=== PATIENT | male | born 1950 | race Caucasian/White ===

== ENCOUNTER 2020-01-18 19:56 | Emergency (ER) | payer MEDICARE, MEDICAID ==
[~2020-01-18] VITALS: Ht 177.8 cm; Wt 60.0 kg
[2020-01-18] MEDS ORDERED: LIDOCAINE 1%/EPI 1:100,000 10 ML VIAL IJ ONE (20:30)
[2020-01-18] MEDS ORDERED: BACITRACIN ZINC OINT UDPKT TOP ONE (20:30)
[2020-01-18 22:56] VITALS: BP 159/73
== END 2020-01-18 22:59 | disposition home or self-care (01) ==
LOC: ER 19:56
DX: T82.838A Hemorrhage due to vascular prosthetic devices, implants and grafts, initial encounter (principal); Y84.1 Kidney dialysis as the cause of abnormal reaction of the patient, or of later complication, without mention of misadventure at the time of the procedure; Y92.9 Unspecified place or not applicable; F32.9 Major depressive disorder, single episode, unspecified; I12.0 Hypertensive chronic kidney disease with stage 5 chronic kidney disease or end stage renal disease; E11.22 Type 2 diabetes mellitus with diabetic chronic kidney disease; N18.6 End stage renal disease; Z99.2 Dependence on renal dialysis; Z79.4 Long term (current) use of insulin; E03.9 Hypothyroidism, unspecified; F20.9 Schizophrenia, unspecified; G62.9 Polyneuropathy, unspecified
CPT/HCPCS: 99283; J3490

== ENCOUNTER 2020-02-06 12:25 | Inpatient (IN) | payer MEDICARE, MEDICAID ==
[~2020-02-06] VITALS: Ht 172.7 cm; Wt 59.9 kg
[2020-02-06] VITALS (16 sets, daily range): BP systolic 118–167; BP diastolic 51–91
[2020-02-06] MEDS ORDERED: VANCOMYCIN 1 G PREMIX 200 ML IV SCH (12:45)
[2020-02-06] MEDS ORDERED: PIPERACILLIN/TAZOBACTAM 3.375GM/50ML PREMIX IV ONE (12:45)
[2020-02-06 13:26] LABS: BASOPHILS % 0.9 % (0.0-2.0); EOSINOPHILS % 3.4 % (0.0-5.0); HEMATOCRIT. 28.3 % (42.0-52.0); HEMOGLOBIN. 8.9 g/dL (14.0-18.0); LYMPHOCYTES % 9.7 % (20.0-50.0); MEAN CORPUSCULAR HEMOGLOBIN 28.8 pg (28.0-32.0); MEAN CORPUSCULAR VOLUME 91.5 fL (80.0-94.0); MONOCYTES % 6.5 % (2.0-8.0); NEUTROPHILS % 79.5 % (40.0-76.0); PLATELET 287 x1000/uL (130-400); RED CELL DISTRIBUTION WIDTH 16.8 % (11.6-14.6)
[2020-02-06 13:31] LABS: BG BASE EXCESS 3.4 mmol/L (-2.0-2.0); BG CARBOXYHEMOGLOBIN 0.6 % (0.5-1.5); BG DEOXYHEMOGLOBIN 4.8 % (0.0-5.0); BG FRACTION INSPIRED OXYGEN 50; BG HCO3 ACT 30.2 mmol/L (22.0-26.0); BG METHEMOGLOBIN 0.2 % (0.0-1.5); BG OXYGEN SATURATION 95.2 % (92.0-98.5); BG OXYHEMOGLOBIN 94.4 % (94.0-97.0); BG PCO2 58.9 mmHg (35.0-45.0); BG PH 7.328 (7.350-7.450); BG PO2 80.9 mmHg (75.0-100.0); BG SAMPLE SITE RIGHT RADIAL; BG TOTAL HEMOGLOBIN 9.5 g/dL (12.0-18.0); BG VENT MODE MASK - BIPAP
[2020-02-06 13:33] LABS: CHLORIDE 100 mEq/L (98-107)
[2020-02-06 13:38] LABS: ETHANOL BLOOD < 10 mg/dL
[2020-02-06 13:45] LABS: D-DIMER 7.52 mg/L FEU (<0.50); INR 1.1; PROTHROMBIN TIME 11.7 sec (9.6-11.0)
[2020-02-06 13:49] LABS: CREATINE KINASE 34 IU/L (39-308)
[2020-02-06] MEDS ORDERED: ALBUTEROL 6.7GM HFA INHALER ORI PRN (15:15)
[2020-02-06 15:55] LABS: CLARITY URINE CLEAR (CLEAR); COLOR URINE YELLOW (YELLOW); KETONES URINE NEGATIVE (NEGATIVE); LEUKOCYTE ESTERASE URINE NEGATIVE (NEGATIVE); NITRITE URINE NEGATIVE (NEGATIVE); OCCULT BLOOD URINE NEGATIVE (NEGATIVE); PROTEIN URINE 3+ (NEGATIVE); SPECIFIC GRAVITY URINE 1.016 (1.005-1.030); UROBILINOGEN URINE 0.2 E.U./dL (0.2-1.0)
[2020-02-06] MEDS ORDERED: CEFTRIAXONE 1 G PREMIX 50 ML IV SCH (16:00)
[2020-02-06] MEDS ORDERED: AZITHROMYCIN 500 MG in DEXT 5% WATER 250 ML IV SCH ×2 (16:00→18:00)
[2020-02-06] MEDS ORDERED: CEFTRIAXONE 1,000 MG in DEXTROSE 5% WATER 50 ML IV SCH (18:00)
[2020-02-06] MEDS: ENOXAPARIN 30MG/0.3ML SYR SUBCUT SCH (19:01)
[2020-02-06] MEDS: CEFTRIAXONE 1,000 MG in DEXTROSE 5% WATER 50 ML IV SCH (20:30)
[2020-02-06] MEDS: EPOETIN ALFA 10000UNITS/ML VIAL SUBCUT SCH (23:16)
[2020-02-07] VITALS (23 sets, daily range): BP systolic 108–170; BP diastolic 44–116
[2020-02-07] MEDS ORDERED: GUAIFENESIN 200MG/10ML SUGAR FREE UDC PO PRN (01:15)
[2020-02-07] MEDS ORDERED: DIPHENHYDRAMINE 50MG/ML VIAL IV PRN (01:15)
[2020-02-07] MEDS ORDERED: ZOLPIDEM TARTRATE 5MG TABLET PO PRN (01:15)
[2020-02-07] MEDS ORDERED: CLONIDINE 0.1MG TABLET PO PRN (01:15)
[2020-02-07] MEDS ORDERED: ONDANSETRON HCL 4MG/2ML INJ IV PRN (01:15)
[2020-02-07] MEDS ORDERED: HYDROCODONE/ACETAMINOPHEN 5/325MG TABLET PO PRN (01:15)
[2020-02-07] MEDS ORDERED: ACETAMINOPHEN 325MG TABLET PO PRN ×2 (01:15)
[2020-02-07] MEDS ORDERED: MAGNESIUM/ALUMINUM HYDROXIDE/SIMETHICONE 30ML UDC PO PRN (01:15)
[2020-02-07] MEDS ORDERED: LORAZEPAM 2MG/ML CPJ IV PRN (01:15)
[2020-02-07] MEDS: LEVOTHYROXINE SODIUM 100MCG TABLET PO SCH (08:55)
[2020-02-07] MEDS: SODIUM CHLORIDE 0.9% INJ 3ML FLUSH IVF SCH ×2 (08:56→14:55)
[2020-02-07] MEDS: METOPROLOL TARTRATE 50MG TABLET PO SCH ×2 (08:57→21:10)
[2020-02-07] MEDS: CITALOPRAM HYDROBROMIDE 10MG TABLET PO SCH (08:57)
[2020-02-07] MEDS: AMLODIPINE 10MG TABLET PO SCH (08:58)
[2020-02-07] MEDS: GABAPENTIN 300MG CAPSULE PO SCH (08:58)
[2020-02-07] MEDS: FOLIC ACID/VITAMIN B COMP W-C TABLET PO SCH (08:58)
[2020-02-07] MEDS: OLANZAPINE 2.5MG TABLET PO SCH (08:59)
[2020-02-07] MEDS: ALLOPURINOL 100 MG TABLET PO SCH (08:59)
[2020-02-07 10:53] LABS: HEMATOCRIT. 26.7 % (42.0-52.0); HEMOGLOBIN. 8.5 g/dL (14.0-18.0); MEAN CORPUSCULAR HEMOGLOBIN 29.3 pg (28.0-32.0); MEAN CORPUSCULAR VOLUME 91.9 fL (80.0-94.0); MEAN PLATELET VOLUME 8.5 fl (7.4-10.4); PLATELET 252 x1000/uL (130-400); RED CELL DISTRIBUTION WIDTH 16.4 % (11.6-14.6)
[2020-02-07 11:21] LABS: PLATELET ESTIMATE NORMAL
[2020-02-07 11:58] LABS: BG BASE EXCESS 2.1 mmol/L (-2.0-2.0); BG CARBOXYHEMOGLOBIN 0.6 % (0.5-1.5); BG DEOXYHEMOGLOBIN 2.8 % (0.0-5.0); BG FRACTION INSPIRED OXYGEN 32; BG HCO3 ACT 28.9 mmol/L (22.0-26.0); BG METHEMOGLOBIN 0.4 % (0.0-1.5); BG OXYGEN SATURATION 97.2 % (92.0-98.5); BG OXYHEMOGLOBIN 96.2 % (94.0-97.0); BG PH 7.316 (7.350-7.450); BG PO2 102.2 mmHg (75.0-100.0); BG SAMPLE SITE RIGHT BRACHIAL; BG TOTAL HEMOGLOBIN 8.9 g/dL (12.0-18.0); BG VENT MODE NASAL CANNULA
[2020-02-07] MEDS: ENOXAPARIN 30MG/0.3ML SYR SUBCUT SCH (17:43)
[2020-02-07] MEDS: CEFTRIAXONE 1,000 MG in DEXTROSE 5% WATER 50 ML IV SCH (21:11)
[2020-02-08] VITALS: BP 118/77
[2020-02-08] MEDS: SODIUM CHLORIDE 0.9% INJ 3ML FLUSH IVF SCH ×4 (01:44→21:17)
[2020-02-08] MEDS: AZITHROMYCIN 500 MG in DEXT 5% WATER 250 ML IV SCH ×2 (01:46→01:47)
[2020-02-08 04:00] VITALS: BP 145/62
[2020-02-08 05:56] LABS: CHLORIDE 102 mEq/L (98-107)
[2020-02-08 06:16] LABS: EOSINOPHILS % 11.2 % (0.0-5.0); HEMATOCRIT. 26.9 % (42.0-52.0); HEMOGLOBIN. 8.6 g/dL (14.0-18.0); LYMPHOCYTES % 9.6 % (20.0-50.0); MEAN CORPUSCULAR VOLUME 91.2 fL (80.0-94.0); MONOCYTES % 8.8 % (2.0-8.0); NEUTROPHILS % 69.4 % (40.0-76.0); PLATELET 289 x1000/uL (130-400); RED BLOOD CELL COUNT 2.95 mill/uL (4.7-6.1); RED CELL DISTRIBUTION WIDTH 16.7 % (11.6-14.6)
[2020-02-08] MEDS: LEVOTHYROXINE SODIUM 100MCG TABLET PO SCH (06:35)
[2020-02-08 08:00] VITALS: BP 122/71
[2020-02-08] MEDS ORDERED: SODIUM BICARBONATE 4% (2.4MEQ) 5ML VIAL IV ONE (08:20)
[2020-02-08 08:46] LABS: BG BASE EXCESS 4.1 mmol/L (-2.0-2.0); BG CARBOXYHEMOGLOBIN 0.9 % (0.5-1.5); BG FRACTION INSPIRED OXYGEN 32; BG HCO3 ACT 30.1 mmol/L (22.0-26.0); BG METHEMOGLOBIN 0.3 % (0.0-1.5); BG OXYGEN SATURATION 92.9 % (92.0-98.5); BG OXYHEMOGLOBIN 91.8 % (94.0-97.0); BG PCO2 53.1 mmHg (35.0-45.0); BG PH 7.371 (7.350-7.450); BG PO2 68.6 mmHg (75.0-100.0); BG SAMPLE SITE RIGHT BRACHIAL; BG TOTAL HEMOGLOBIN 9.3 g/dL (12.0-18.0); BG VENT MODE NASAL CANNULA
[2020-02-08] MEDS: METOPROLOL TARTRATE 50MG TABLET PO SCH ×2 (09:00→21:18)
[2020-02-08] MEDS: AMLODIPINE 10MG TABLET PO SCH (09:00)
[2020-02-08] MEDS: ALLOPURINOL 100 MG TABLET PO SCH (10:38)
[2020-02-08] MEDS: OLANZAPINE 2.5MG TABLET PO SCH (10:38)
[2020-02-08] MEDS: CITALOPRAM HYDROBROMIDE 10MG TABLET PO SCH (10:38)
[2020-02-08] MEDS: FOLIC ACID/VITAMIN B COMP W-C TABLET PO SCH (10:38)
[2020-02-08] MEDS: GABAPENTIN 300MG CAPSULE PO SCH (10:38)
[2020-02-08 12:00] VITALS: BP 101/73
[2020-02-08 16:00] VITALS: BP 164/74
[2020-02-08 20:00] VITALS: BP 118/70
[2020-02-08] MEDS: IPRATROPIUM/ALBUTEROL 0.5-3(2.5)MG/3ML NEB HHN SCH (20:23)
[2020-02-08] MEDS: CEFTRIAXONE 1,000 MG in DEXTROSE 5% WATER 50 ML IV SCH (20:38)
[2020-02-08] MEDS: EPOETIN ALFA 10000UNITS/ML VIAL SUBCUT SCH (21:17)
[2020-02-08] MEDS: AZITHROMYCIN 500 MG TABLET PO SCH (21:18)
[2020-02-09] VITALS: BP 100/63
[2020-02-09] MEDS: IPRATROPIUM/ALBUTEROL 0.5-3(2.5)MG/3ML NEB HHN SCH ×4 (01:49→21:11)
[2020-02-09 04:00] VITALS: BP 104/68
[2020-02-09] MEDS: LEVOTHYROXINE SODIUM 100MCG TABLET PO SCH (07:00)
[2020-02-09] MEDS: SODIUM CHLORIDE 0.9% INJ 3ML FLUSH IVF SCH ×3 (07:00→21:02)
[2020-02-09 08:00] VITALS: BP 150/77
[2020-02-09] MEDS: CITALOPRAM HYDROBROMIDE 10MG TABLET PO SCH (09:37)
[2020-02-09] MEDS: OLANZAPINE 2.5MG TABLET PO SCH (09:37)
[2020-02-09] MEDS: GABAPENTIN 300MG CAPSULE PO SCH (09:37)
[2020-02-09] MEDS: FOLIC ACID/VITAMIN B COMP W-C TABLET PO SCH (09:37)
[2020-02-09] MEDS: AMLODIPINE 10MG TABLET PO SCH (09:37)
[2020-02-09] MEDS: METOPROLOL TARTRATE 50MG TABLET PO SCH ×2 (09:38→21:02)
[2020-02-09] MEDS: ALLOPURINOL 100 MG TABLET PO SCH (09:38)
[2020-02-09 12:00] VITALS: BP 99/40
[2020-02-09 16:00] VITALS: BP 134/55
[2020-02-09 20:00] VITALS: BP 138/61
[2020-02-09] MEDS: CEFTRIAXONE 1,000 MG in DEXTROSE 5% WATER 50 ML IV SCH (20:35)
[2020-02-09] MEDS: AZITHROMYCIN 500 MG TABLET PO SCH (21:02)
[2020-02-10] VITALS: BP 140/59
[2020-02-10] MEDS: IPRATROPIUM/ALBUTEROL 0.5-3(2.5)MG/3ML NEB HHN SCH ×3 (02:40→16:35)
[2020-02-10 04:00] VITALS: BP 135/64
[2020-02-10] MEDS: SODIUM CHLORIDE 0.9% INJ 3ML FLUSH IVF SCH ×2 (06:13→13:15)
[2020-02-10] MEDS: LEVOTHYROXINE SODIUM 100MCG TABLET PO SCH (06:20)
[2020-02-10 08:00] VITALS: BP 141/56
[2020-02-10] MEDS: CITALOPRAM HYDROBROMIDE 10MG TABLET PO SCH (09:54)
[2020-02-10] MEDS: GABAPENTIN 300MG CAPSULE PO SCH (09:54)
[2020-02-10] MEDS: OLANZAPINE 2.5MG TABLET PO SCH (09:54)
[2020-02-10] MEDS: AMLODIPINE 10MG TABLET PO SCH (09:54)
[2020-02-10] MEDS: FOLIC ACID/VITAMIN B COMP W-C TABLET PO SCH (09:55)
[2020-02-10] MEDS: METOPROLOL TARTRATE 50MG TABLET PO SCH (09:55)
[2020-02-10] MEDS: ALLOPURINOL 100 MG TABLET PO SCH (09:55)
[2020-02-10 12:00] VITALS: BP 108/56
[2020-02-10] MEDS ORDERED: GABA300C PO (13:14)
[2020-02-10] MEDS ORDERED: LEVO100T MT (13:14)
[2020-02-10] MEDS ORDERED: AMLO10TA4 MT (13:14)
[2020-02-10] MEDS ORDERED: OLAN2.5T3 MT (13:14)
[2020-02-10] MEDS ORDERED: FOLI1TAB63 MT (13:14)
[2020-02-10] MEDS ORDERED: METO-385 PO (13:14)
[2020-02-10] MEDS ORDERED: ALLO100T57 MT (13:14)
[2020-02-10 16:00] VITALS: BP 110/62
[2020-02-10 20:00] VITALS: BP 129/59
[2020-02-10] MEDS: AZITHROMYCIN 500 MG TABLET PO SCH (21:44)
== END 2020-02-10 22:00 | DRG 871 ==
LOC: ER 12:25 → MICUSO 14:52 → EDBEDREQ 15:05 → EDBEDREQSVC 15:05 → CANRESERV 15:19 → ENRESERV 15:19 → 6EST 02-07 21:30
PROVIDERS: ADMIT Internal Medicine; ATTEND Internal Medicine
PROC: 5A09357 Assistance with Respiratory Ventilation, Less than 24 Consecutive Hours, Continuous Positive Airway Pressure (ICD-10-PCS; 2020-02-06)
PROC: 5A1D70Z Performance of Urinary Filtration, Intermittent, Less than 6 Hours Per Day (ICD-10-PCS; 2020-02-06)
PROC: 0W9B3ZZ Drainage of Left Pleural Cavity, Percutaneous Approach (ICD-10-PCS; principal; 2020-02-08)
PROC: 5A1D70Z Performance of Urinary Filtration, Intermittent, Less than 6 Hours Per Day (ICD-10-PCS; 2020-02-08)
DX: A41.9 Sepsis, unspecified organism (principal); J96.01 Acute respiratory failure with hypoxia; N18.6 End stage renal disease; J15.9 Unspecified bacterial pneumonia; J96.02 Acute respiratory failure with hypercapnia; I50.43 Acute on chronic combined systolic (congestive) and diastolic (congestive) heart failure; I13.2 Hypertensive heart and chronic kidney disease with heart failure and with stage 5 chronic kidney disease, or end stage renal disease; E44.0 Moderate protein-calorie malnutrition; J91.8 Pleural effusion in other conditions classified elsewhere; J94.8 Other specified pleural conditions; D63.8 Anemia in other chronic diseases classified elsewhere; E03.9 Hypothyroidism, unspecified; F32.9 Major depressive disorder, single episode, unspecified; F20.9 Schizophrenia, unspecified; E11.22 Type 2 diabetes mellitus with diabetic chronic kidney disease; E11.40 Type 2 diabetes mellitus with diabetic neuropathy, unspecified; Z20.828 Contact with and (suspected) exposure to other viral communicable diseases; M10.9 Gout, unspecified; Z99.2 Dependence on renal dialysis; Z68.20 Body mass index [BMI] 20.0-20.9, adult; Z79.899 Other long term (current) drug therapy; F29 Unspecified psychosis not due to a substance or known physiological condition
CPT/HCPCS: 32555; 36415; 36600; 71045; 71250; 76604; 80048; 80053; 80320; 81003; 82040; 82375; 82550; 82728; 82805; 83605; 83615; 83880; 84145; 84484; 85025; 85379; 85384; 86140; 86850; 86900; 87635; 87804; 93005; 93970; 94640; 94660; 99291; J0456; J0696; J0885; J1650; J2543; J3370; J3490; J7060; G0480

== ENCOUNTER 2020-04-06 00:31 | Inpatient (IN) | payer MEDICARE, MEDICAID ==
[~2020-04-06] VITALS: Ht 165.1 cm; Wt 59.9 kg
[~2020-04-06 00:31] MED LIST: ALBU6.7H9 INH; ALLO100T57 MT; AMLO10TA4 MT; CITA10TA16 PO; FOLI1TAB63 MT; GABA300C PO; HYDR-3281 PO; LEVO100T MT; LORA-249 PO; METO-385 PO; OLAN2.5T3 MT
[2020-04-06 01:29] LABS: BG BASE EXCESS 1.4 mmol/L (-2.0-2.0); BG CARBOXYHEMOGLOBIN 0.7 % (0.5-1.5); BG DEOXYHEMOGLOBIN 1.7 % (0.0-5.0); BG FRACTION INSPIRED OXYGEN 100; BG HCO3 ACT 28.9 mmol/L (22.0-26.0); BG METHEMOGLOBIN 0.1 % (0.0-1.5); BG OXYGEN SATURATION 98.3 % (92.0-98.5); BG OXYHEMOGLOBIN 97.5 % (94.0-97.0); BG PCO2 60.7 mmHg (35.0-45.0); BG PH 7.295 (7.350-7.450); BG PO2 124.1 mmHg (75.0-100.0); BG SAMPLE SITE RIGHT RADIAL; BG TOTAL HEMOGLOBIN 10.6 g/dL (12.0-18.0); BG VENT MODE MASK - NRB
[2020-04-06 01:30] LABS: HEMOGLOBIN. 10.2 g/dL (14.0-18.0); MEAN CORPUSCULAR HEMOGLOBIN 25.3 pg (28.0-32.0); MEAN CORPUSCULAR VOLUME 81.7 fL (80.0-94.0); MEAN PLATELET VOLUME 7.7 fl (7.4-10.4); PLATELET 451 x1000/uL (130-400); RED BLOOD CELL COUNT 4.04 mill/uL (4.7-6.1); RED CELL DISTRIBUTION WIDTH 18.5 % (11.6-14.6)
[2020-04-06 01:38] LABS: CHLORIDE 100 mEq/L (98-107)
[2020-04-06 01:39] LABS: INR 1.1; PROTHROMBIN TIME 11.9 sec (9.6-11.0)
[2020-04-06 01:58] LABS: PLATELET ESTIMATE NORMAL
[2020-04-06] MEDS ORDERED: AZITHROMYCIN 500 MG in DEXT 5% WATER 250 ML IV ONE (04:00)
[2020-04-06] MEDS ORDERED: CEFTRIAXONE 1 G PREMIX 50 ML IV ONE (04:00)
[2020-04-06] MEDS ORDERED: FUROSEMIDE 40MG/4ML VIAL IVP ONE (04:00)
[2020-04-06] MEDS ORDERED: NITROGLYCERIN OINT 1GM/INCH UDPKT TD ONE (04:00)
[2020-04-06] MEDS ORDERED: DOCUSATE SODIUM 100MG CAPSULE PO PRN (07:00)
[2020-04-06] MEDS ORDERED: ACETAMINOPHEN 325MG TABLET PO PRN (07:00)
[2020-04-06] MEDS ORDERED: GUAIFENESIN 200MG/10ML SUGAR FREE UDC PO PRN (07:00)
[2020-04-06] MEDS ORDERED: MAGNESIUM/ALUMINUM HYDROXIDE/SIMETHICONE 30ML UDC PO PRN (07:00)
[2020-04-06] MEDS ORDERED: ONDANSETRON HCL 4MG/2ML INJ IV PRN (07:00)
[2020-04-06] MEDS ORDERED: ZOLPIDEM TARTRATE 5MG TABLET PO PRN (07:00)
[2020-04-06] MEDS ORDERED: ALBUTEROL 6.7GM HFA INHALER ORI PRN (07:00)
[2020-04-06] MEDS ORDERED: NITROGLYCERIN 0.4MG TABLET SL SL PRN (07:00)
[2020-04-06] MEDS ORDERED: NOREPINEPHRINE 8MG/250ML PMX 250 ML IV PRN (07:30)
[2020-04-06] MEDS ORDERED: NOREPINEPHRINE 8 MG in DEXT 5% WATER 242 ML IV PRN (07:30)
[2020-04-06] MEDS: LEVOTHYROXINE SODIUM 112MCG TABLET PO SCH (07:50)
[2020-04-06 08:30] VITALS: BP_SYST 151; BP_SYST 175; BP_DIAS 71
[2020-04-06] MEDS: ALBUTEROL 6.7GM HFA INHALER ORI SCH ×2 (09:00→15:00)
[2020-04-06] MEDS: SEVELAMER CARBONATE 800 MG TABLET PO SCH ×3 (09:40→16:45)
[2020-04-06] MEDS: ZINC SULFATE 220 MG ( 50 ) CAPSULE PO SCH (09:40)
[2020-04-06] MEDS: ACETAMINOPHEN 325MG TABLET PO PRN ×2 (09:42→18:07)
[2020-04-06] MEDS: FAMOTIDINE 20MG TABLET PO SCH (09:42)
[2020-04-06] MEDS: ENOXAPARIN 30MG/0.3ML SYR SUBCUT SCH (09:42)
[2020-04-06] MEDS: ASCORBIC ACID 500 MG TABLET PO SCH ×2 (09:43→21:27)
[2020-04-06] MEDS: GUAIFENESIN/DM 600MG/30MG ER TAB 12HR PO SCH ×2 (09:43→18:01)
[2020-04-06] MEDS: AMLODIPINE 10MG TABLET PO SCH (09:43)
[2020-04-06] MEDS: ASPIRIN 81MG EC TABLET PO SCH (09:43)
[2020-04-06 12:00] VITALS: BP 148/82
[2020-04-06] MEDS: LORAZEPAM 0.5MG TABLET PO PRN ×2 (13:48→19:23)
[2020-04-06 16:00] VITALS: BP 164/90
[2020-04-06 20:00] VITALS: BP 149/77
[2020-04-06 20:07] LABS: CREATINE KINASE 30 IU/L (39-308)
[2020-04-06 20:08] LABS: CREATINE KINASE MB FRACTION 2.1 ng/mL (0.5-3.6)
[2020-04-07] VITALS (7 sets, daily range): BP systolic 145–160; BP diastolic 65–76
[2020-04-07] MEDS: GUAIFENESIN/DM 600MG/30MG ER TAB 12HR PO SCH ×2 (06:43→19:21)
[2020-04-07] MEDS: LEVOTHYROXINE SODIUM 112MCG TABLET PO SCH (06:43)
[2020-04-07] MEDS: CLONIDINE 0.1MG TABLET PO PRN (06:44)
[2020-04-07] MEDS: SEVELAMER CARBONATE 800 MG TABLET PO SCH ×3 (06:50→16:33)
[2020-04-07 07:29] LABS: CREATINE KINASE 22 IU/L (39-308)
[2020-04-07 07:30] LABS: CREATINE KINASE MB FRACTION 1.5 ng/mL (0.5-3.6)
[2020-04-07] MEDS: ALBUTEROL (0.083%) 2.5MG/3ML NEB HHN SCH ×2 (09:20→14:36)
[2020-04-07] MEDS ORDERED: ALBUTEROL (0.083%) 2.5MG/3ML NEB HHN PRN (09:30)
[2020-04-07] MEDS: ZINC SULFATE 220 MG ( 50 ) CAPSULE PO SCH (09:32)
[2020-04-07] MEDS: ASCORBIC ACID 500 MG TABLET PO SCH ×2 (09:33→20:11)
[2020-04-07] MEDS: ASPIRIN 81MG EC TABLET PO SCH (09:33)
[2020-04-07] MEDS: AMLODIPINE 10MG TABLET PO SCH (09:33)
[2020-04-07] MEDS: FAMOTIDINE 20MG TABLET PO SCH (09:33)
[2020-04-07] MEDS: ACETAMINOPHEN 325MG TABLET PO PRN ×2 (09:34→20:11)
[2020-04-07] MEDS: LORAZEPAM 0.5MG TABLET PO PRN ×2 (10:50→16:33)
[2020-04-07] MEDS: ENOXAPARIN 30MG/0.3ML SYR SUBCUT SCH (12:31)
[2020-04-07] MEDS: IPRATROPIUM/ALBUTEROL 0.5-3(2.5)MG/3ML NEB HHN SCH (20:41)
[2020-04-08] VITALS: BP 169/86
[2020-04-08] MEDS: IPRATROPIUM/ALBUTEROL 0.5-3(2.5)MG/3ML NEB HHN SCH ×4 (00:58→21:15)
[2020-04-08 04:00] VITALS: BP 152/75
[2020-04-08] MEDS: ACETAMINOPHEN 325MG TABLET PO PRN ×3 (06:44→22:06)
[2020-04-08] MEDS: LEVOTHYROXINE SODIUM 112MCG TABLET PO SCH (06:44)
[2020-04-08] MEDS: SEVELAMER CARBONATE 800 MG TABLET PO SCH ×3 (06:44→17:37)
[2020-04-08] MEDS: GUAIFENESIN/DM 600MG/30MG ER TAB 12HR PO SCH ×2 (06:44→19:08)
[2020-04-08] MEDS: ZINC SULFATE 220 MG ( 50 ) CAPSULE PO SCH (09:24)
[2020-04-08] MEDS: FAMOTIDINE 20MG TABLET PO SCH (09:24)
[2020-04-08] MEDS: ASCORBIC ACID 500 MG TABLET PO SCH ×2 (09:24→21:26)
[2020-04-08] MEDS: ASPIRIN 81MG EC TABLET PO SCH (09:24)
[2020-04-08] MEDS: ENOXAPARIN 30MG/0.3ML SYR SUBCUT SCH (09:24)
[2020-04-08] MEDS: AMLODIPINE 10MG TABLET PO SCH (09:24)
[2020-04-08] MEDS: LORAZEPAM 0.5MG TABLET PO PRN ×2 (09:35→17:37)
[2020-04-08] MEDS: TRAMADOL 50MG TABLET PO PRN (11:59)
[2020-04-08 12:00] VITALS: BP 104/58
[2020-04-08 16:00] VITALS: BP 148/70
[2020-04-08 20:00] VITALS: BP 153/70
[2020-04-09] VITALS: BP 153/80
[2020-04-09] MEDS: IPRATROPIUM/ALBUTEROL 0.5-3(2.5)MG/3ML NEB HHN SCH ×3 (01:01→09:00)
[2020-04-09 04:00] VITALS: BP 160/76
[2020-04-09] MEDS: CLONIDINE 0.1MG TABLET PO PRN (04:06)
[2020-04-09] MEDS: LEVOTHYROXINE SODIUM 112MCG TABLET PO SCH (06:09)
[2020-04-09] MEDS: SEVELAMER CARBONATE 800 MG TABLET PO SCH ×3 (06:10→17:15)
[2020-04-09] MEDS: GUAIFENESIN/DM 600MG/30MG ER TAB 12HR PO SCH ×2 (06:10→18:34)
[2020-04-09 08:00] VITALS: BP 149/71
[2020-04-09] MEDS: LORAZEPAM 0.5MG TABLET PO PRN ×2 (08:55→13:50)
[2020-04-09] MEDS: FAMOTIDINE 20MG TABLET PO SCH (08:55)
[2020-04-09] MEDS: ASPIRIN 81MG EC TABLET PO SCH (08:55)
[2020-04-09] MEDS: ZINC SULFATE 220 MG ( 50 ) CAPSULE PO SCH (08:55)
[2020-04-09] MEDS: ENOXAPARIN 30MG/0.3ML SYR SUBCUT SCH (08:55)
[2020-04-09] MEDS: AMLODIPINE 10MG TABLET PO SCH (08:55)
[2020-04-09] MEDS: ASCORBIC ACID 500 MG TABLET PO SCH (08:55)
[2020-04-09 12:00] VITALS: BP 134/67
[2020-04-09] MEDS: TRAMADOL 50MG TABLET PO PRN (15:02)
[2020-04-09 16:00] VITALS: BP 158/86
[2020-04-09] MEDS: ACETAMINOPHEN 325MG TABLET PO PRN (18:36)
== END 2020-04-09 20:34 | DRG 291 ==
LOC: ER 00:31 → 7EST 05:41 → SUPCPDRO 06:54 → ENRESERV 07:24 → 5WST 23:00
PROVIDERS: ADMIT Internal Medicine; ATTEND Internal Medicine
PROC: 5A1D70Z Performance of Urinary Filtration, Intermittent, Less than 6 Hours Per Day (ICD-10-PCS; principal; 2020-04-06)
PROC: 5A1D70Z Performance of Urinary Filtration, Intermittent, Less than 6 Hours Per Day (ICD-10-PCS; 2020-04-09)
DX: I13.2 Hypertensive heart and chronic kidney disease with heart failure and with stage 5 chronic kidney disease, or end stage renal disease (principal); J96.01 Acute respiratory failure with hypoxia; J96.02 Acute respiratory failure with hypercapnia; N18.6 End stage renal disease; I50.43 Acute on chronic combined systolic (congestive) and diastolic (congestive) heart failure; E44.0 Moderate protein-calorie malnutrition; M48.54XA Collapsed vertebra, not elsewhere classified, thoracic region, initial encounter for fracture; Z94.0 Kidney transplant status; J91.8 Pleural effusion in other conditions classified elsewhere; E03.9 Hypothyroidism, unspecified; D63.8 Anemia in other chronic diseases classified elsewhere; E11.22 Type 2 diabetes mellitus with diabetic chronic kidney disease; F20.9 Schizophrenia, unspecified; F32.9 Major depressive disorder, single episode, unspecified; E11.40 Type 2 diabetes mellitus with diabetic neuropathy, unspecified; Z20.828 Contact with and (suspected) exposure to other viral communicable diseases; Z79.51 Long term (current) use of inhaled steroids; Z79.899 Other long term (current) drug therapy; Z79.1 Long term (current) use of non-steroidal anti-inflammatories (NSAID); Z68.22 Body mass index [BMI] 22.0-22.9, adult; Z99.2 Dependence on renal dialysis; Z99.81 Dependence on supplemental oxygen; Z91.14 Patient's other noncompliance with medication regimen
CPT/HCPCS: 36415; 36600; 71045; 80053; 80061; 82375; 82550; 82553; 82805; 83036; 83605; 83880; 84145; 84443; 84484; 85025; 87635; 93005; 93970; 97162; 97166; 99291; J0456; J0696; J1650; J1940; J7060

== ENCOUNTER 2020-04-19 21:36 | Inpatient (IN) | payer MEDICARE, MEDICAID ==
[~2020-04-19] VITALS: Ht 162.6 cm; Wt 47.4 kg
[2020-04-19] MEDS ORDERED: IPRATROPIUM BROMIDE (0.02%) 0.5MG/2.5ML NEB HHN STA (21:53)
[2020-04-19] MEDS ORDERED: METHYLPREDNISOLONE SOD SUCC 125 MG/2 ML VIAL IV STA (21:53)
[2020-04-19] MEDS ORDERED: MAGNESIUM 2 G PREMIX 50 ML IV ONE (22:00)
[2020-04-19] MEDS: ALBUTEROL (0.083%) 2.5MG/3ML NEB HHN SCH ×3 (22:03→22:30)
[2020-04-19] MEDS ORDERED: FUROSEMIDE 40MG/4ML VIAL IVP ONE (22:45)
[2020-04-19 22:52] LABS: HEMATOCRIT. 38.8 % (42.0-52.0); HEMOGLOBIN. 11.7 g/dL (14.0-18.0); MEAN CORPUSCULAR HEMOGLOBIN 24.3 pg (28.0-32.0); MEAN CORPUSCULAR VOLUME 80.8 fL (80.0-94.0); MEAN PLATELET VOLUME 7.7 fl (7.4-10.4); PLATELET 305 x1000/uL (130-400); RED CELL DISTRIBUTION WIDTH 19.3 % (11.6-14.6)
[2020-04-19 22:56] LABS: CHLORIDE 100 mEq/L (98-107)
[2020-04-19 23:00] LABS: INR 1.2; PROTHROMBIN TIME 12.2 sec (9.6-11.0)
[2020-04-19 23:21] LABS: PLATELET ESTIMATE NORMAL
[2020-04-19] MEDS ORDERED: PIPERACILLIN/TAZ 3.375G PREMIX 50 ML IV ONE (23:45)
[2020-04-20] MEDS ORDERED: LORAZEPAM 2MG/ML CPJ IV ONE ×2 (01:30→01:45)
[2020-04-20 02:32] LABS: BG BASE EXCESS -5.3 mmol/L (-2.0-2.0); BG CARBOXYHEMOGLOBIN 0.8 % (0.5-1.5); BG FRACTION INSPIRED OXYGEN 60; BG METHEMOGLOBIN 0.4 % (0.0-1.5); BG OXYHEMOGLOBIN 95.8 % (94.0-97.0); BG PCO2 38.1 mmHg (35.0-45.0); BG PH 7.338 (7.350-7.450); BG PO2 97.5 mmHg (75.0-100.0); BG SAMPLE SITE RIGHT RADIAL; BG TOTAL HEMOGLOBIN 11.8 g/dL (12.0-18.0); BG VENT MODE MASK - BIPAP
[2020-04-20] MEDS ORDERED: ONDANSETRON HCL 4MG/2ML INJ IV PRN (09:00)
[2020-04-20] MEDS ORDERED: LORAZEPAM 2MG/ML CPJ IV PRN (10:15)
[2020-04-20] MEDS: LOSARTAN POTASSIUM 100 MG TABLET PO SCH (10:24)
[2020-04-20] MEDS: NIFEDIPINE XL 60MG TAB PO SCH (10:24)
[2020-04-20] MEDS: LEVOTHYROXINE SODIUM 100MCG TABLET PO SCH (10:25)
[2020-04-20] MEDS: PIPERACILLIN/TAZOBACTAM 2.25 G in DEXTROSE 5% WATER 50 ML IV SCH ×2 (10:25→18:21)
[2020-04-20] MEDS: ENOXAPARIN 30MG/0.3ML SYR SUBCUT SCH (10:26)
[2020-04-20] MEDS: LORAZEPAM 2MG/ML CPJ IV PRN ×2 (16:02→23:54)
[2020-04-20] MEDS ORDERED: AZITHROMYCIN 500 MG in DEXT 5% WATER 250 ML IV SCH (20:00)
[2020-04-20] MEDS ORDERED: VANCOMYCIN 1 G PREMIX 200 ML IV NR (20:00)
[2020-04-20] MEDS: ALBUTEROL 6.7GM HFA INHALER ORI SCH (21:00)
[2020-04-20 21:30] VITALS: BP 111/70
[2020-04-21] VITALS: BP 122/69
[2020-04-21] MEDS ORDERED: VANCOMYCIN 1 G PREMIX 200 ML IV NR (01:00)
[2020-04-21] MEDS: PIPERACILLIN/TAZOBACTAM 2.25 G in DEXTROSE 5% WATER 50 ML IV SCH ×3 (01:05→16:57)
[2020-04-21] MEDS: ALBUTEROL 6.7GM HFA INHALER ORI SCH ×3 (02:35→09:00)
[2020-04-21] MEDS: ACETAMINOPHEN 325MG TABLET PO PRN ×2 (06:21→20:28)
[2020-04-21 08:00] VITALS: BP 150/70
[2020-04-21] MEDS: LORAZEPAM 2MG/ML CPJ IV PRN ×3 (08:10→20:12)
[2020-04-21] MEDS: ENOXAPARIN 30MG/0.3ML SYR SUBCUT SCH (08:11)
[2020-04-21] MEDS: LEVOTHYROXINE SODIUM 100MCG TABLET PO SCH (08:11)
[2020-04-21] MEDS: LOSARTAN POTASSIUM 100 MG TABLET PO SCH (08:11)
[2020-04-21] MEDS: NIFEDIPINE XL 60MG TAB PO SCH (08:20)
[2020-04-21 10:11] LABS: BASOPHILS % 0.5 % (0.0-2.0); EOSINOPHILS % 1.4 % (0.0-5.0); HEMATOCRIT. 35.8 % (42.0-52.0); HEMOGLOBIN. 11.2 g/dL (14.0-18.0); LYMPHOCYTES % 8.5 % (20.0-50.0); MEAN CORPUSCULAR HEMOGLOBIN 24.9 pg (28.0-32.0); MEAN CORPUSCULAR VOLUME 79.3 fL (80.0-94.0); MEAN PLATELET VOLUME 7.8 fl (7.4-10.4); MONOCYTES % 6.7 % (2.0-8.0); NEUTROPHILS % 82.9 % (40.0-76.0); PLATELET 297 x1000/uL (130-400); RED BLOOD CELL COUNT 4.52 mill/uL (4.7-6.1); RED CELL DISTRIBUTION WIDTH 19.1 % (11.6-14.6)
[2020-04-21 12:00] VITALS: BP 144/80
[2020-04-21] MEDS: CITALOPRAM HYDROBROMIDE 10MG TABLET PO SCH (14:00)
[2020-04-21 16:00] VITALS: BP 110/69
[2020-04-21] MEDS ORDERED: VANCOMYCIN 500 MG PREMIX 100 ML IV SCH (16:00)
[2020-04-21] MEDS: AZITHROMYCIN 500 MG in DEXT 5% WATER 250 ML IV SCH (20:12)
[2020-04-21] MEDS: OLANZAPINE 2.5MG TABLET PO SCH (20:12)
[2020-04-22] VITALS: BP 149/74
[2020-04-22] MEDS: ALBUTEROL 6.7GM HFA INHALER ORI SCH ×2 (00:20→04:33)
[2020-04-22] MEDS: PIPERACILLIN/TAZOBACTAM 2.25 G in DEXTROSE 5% WATER 50 ML IV SCH ×3 (02:58→20:02)
[2020-04-22 04:00] VITALS: BP 125/59
[2020-04-22 08:00] VITALS: BP 155/74
[2020-04-22] MEDS: CITALOPRAM HYDROBROMIDE 10MG TABLET PO SCH (08:25)
[2020-04-22] MEDS: LEVOTHYROXINE SODIUM 100MCG TABLET PO SCH (08:25)
[2020-04-22] MEDS: ENOXAPARIN 30MG/0.3ML SYR SUBCUT SCH (08:26)
[2020-04-22] MEDS: NIFEDIPINE XL 60MG TAB PO SCH (09:00)
[2020-04-22] MEDS: LOSARTAN POTASSIUM 100 MG TABLET PO SCH (09:00)
[2020-04-22] MEDS: ACETAMINOPHEN 325MG TABLET PO PRN ×2 (10:18→17:37)
[2020-04-22] MEDS ORDERED: IPRATROPIUM/ALBUTEROL 0.5-3(2.5)MG/3ML NEB HHN PRN (12:15)
[2020-04-22 13:00] LABS: BASOPHILS % 1.1 % (0.0-2.0); EOSINOPHILS % 6.8 % (0.0-5.0); HEMATOCRIT. 36.1 % (42.0-52.0); MEAN CORPUSCULAR HEMOGLOBIN 24.5 pg (28.0-32.0); MONOCYTES % 8.5 % (2.0-8.0); NEUTROPHILS % 73.6 % (40.0-76.0); PLATELET 310 x1000/uL (130-400); RED BLOOD CELL COUNT 4.51 mill/uL (4.7-6.1)
[2020-04-22 16:00] VITALS: BP 180/88
[2020-04-22] MEDS ORDERED: VANCOMYCIN 500 MG PREMIX 100 ML IV NR (20:00)
[2020-04-22 20:30] VITALS: BP 188/97
[2020-04-22] MEDS: OLANZAPINE 2.5MG TABLET PO SCH (21:41)
[2020-04-22] MEDS: LORAZEPAM 2MG/ML CPJ IV PRN (22:40)
[2020-04-22] MEDS: AZITHROMYCIN 500 MG in DEXT 5% WATER 250 ML IV SCH (22:40)
[2020-04-22] MEDS: CLONIDINE 0.1MG TABLET PO PRN (23:26)
[2020-04-23] VITALS (17 sets, daily range): BP systolic 113–191; BP diastolic 43–94
[2020-04-23] MEDS: PIPERACILLIN/TAZOBACTAM 2.25 G in DEXTROSE 5% WATER 50 ML IV SCH ×3 (01:14→18:04)
[2020-04-23] MEDS: LEVOTHYROXINE SODIUM 100MCG TABLET PO SCH (05:27)
[2020-04-23] MEDS: LOSARTAN POTASSIUM 100 MG TABLET PO SCH (08:20)
[2020-04-23] MEDS: CITALOPRAM HYDROBROMIDE 10MG TABLET PO SCH (08:21)
[2020-04-23] MEDS: NIFEDIPINE XL 60MG TAB PO SCH (08:21)
[2020-04-23] MEDS: ACETAMINOPHEN 325MG TABLET PO PRN (08:21)
[2020-04-23] MEDS ORDERED: SODIUM BICARBONATE 4% (2.4MEQ) 5ML VIAL IV ONE (08:52)
[2020-04-23] MEDS: CLONIDINE 0.1MG TABLET PO PRN (12:28)
[2020-04-23] MEDS ORDERED: BUPIVACAINE HCL/PF 0.5% (5MG/ML) 10ML ONE (13:08)
[2020-04-23] MEDS ORDERED: LIDOCAINE HCL 1% 20ML VIAL (Pyxis) INJ ONE (13:08)
[2020-04-23] MEDS ORDERED: SKIN ADHESIVE 0.7 GM EA TOP ONE (13:14)
[2020-04-23] MEDS ORDERED: TALC 3 GM VIAL IX SCH ×2 (13:30→13:45)
[2020-04-23] MEDS ORDERED: ROCURONIUM BROMIDE 10MG/ML VIAL 5ML IV ONE (15:12)
[2020-04-23] MEDS ORDERED: DEXAMETHASONE 4MG/ML 1ML VIAL ONE (15:37)
[2020-04-23] MEDS ORDERED: CEFAZOLIN SODIUM 1000MG/VIAL ONE (15:38)
[2020-04-23] MEDS ORDERED: METOPROLOL TARTRATE 5MG/5ML VIAL IV ONE ×2 (15:42→16:42)
[2020-04-23] MEDS: MORPHINE SULFATE 2 MG/ML CPJ (NOT FOR IM USE) IV PRN ×2 (17:18→20:36)
[2020-04-23] MEDS: AZITHROMYCIN 500 MG in DEXT 5% WATER 250 ML IV SCH (20:36)
[2020-04-23] MEDS: OLANZAPINE 2.5MG TABLET PO SCH (20:50)
[2020-04-24] VITALS (47 sets, daily range): BP systolic 59–147; BP diastolic 30–107
[2020-04-24] MEDS: PIPERACILLIN/TAZOBACTAM 2.25 G in DEXTROSE 5% WATER 50 ML IV SCH (02:33)
[2020-04-24 05:41] LABS: HEMATOCRIT. 33.7 % (42.0-52.0); HEMOGLOBIN. 10.4 g/dL (14.0-18.0); MEAN CORPUSCULAR HEMOGLOBIN 24.5 pg (28.0-32.0); MEAN CORPUSCULAR VOLUME 79.3 fL (80.0-94.0); MEAN PLATELET VOLUME 8.3 fl (7.4-10.4); PLATELET 371 x1000/uL (130-400); RED BLOOD CELL COUNT 4.25 mill/uL (4.7-6.1); RED CELL DISTRIBUTION WIDTH 19.2 % (11.6-14.6)
[2020-04-24] MEDS: CITALOPRAM HYDROBROMIDE 10MG TABLET PO SCH (08:38)
[2020-04-24] MEDS: LEVOTHYROXINE SODIUM 100MCG TABLET PO SCH (08:38)
[2020-04-24] MEDS: LOSARTAN POTASSIUM 100 MG TABLET PO SCH (08:38)
[2020-04-24] MEDS: NIFEDIPINE XL 60MG TAB PO SCH (08:38)
[2020-04-24 09:27] LABS: PLATELET ESTIMATE NORMAL
[2020-04-24] MEDS: MORPHINE SULFATE 2 MG/ML CPJ (NOT FOR IM USE) IV PRN ×4 (17:01→23:11)
[2020-04-24] MEDS ORDERED: VANCOMYCIN 500 MG PREMIX 100 ML IV SCH (18:00)
[2020-04-24] MEDS: AZITHROMYCIN 500 MG in DEXT 5% WATER 250 ML IV SCH (19:38)
[2020-04-24] MEDS: OLANZAPINE 2.5MG TABLET PO SCH (20:33)
[2020-04-24] MEDS: ACETAMINOPHEN 325MG TABLET PO PRN (23:30)
[2020-04-25] VITALS (46 sets, daily range): BP systolic 80–142; BP diastolic 37–90
[2020-04-25 06:59] LABS: HEMATOCRIT. 31.5 % (42.0-52.0); HEMOGLOBIN. 9.7 g/dL (14.0-18.0); MEAN CORPUSCULAR HEMOGLOBIN 24.5 pg (28.0-32.0); MEAN CORPUSCULAR VOLUME 79.6 fL (80.0-94.0); PLATELET 364 x1000/uL (130-400); RED BLOOD CELL COUNT 3.95 mill/uL (4.7-6.1); RED CELL DISTRIBUTION WIDTH 19.1 % (11.6-14.6)
[2020-04-25] MEDS: LOSARTAN POTASSIUM 100 MG TABLET PO SCH (08:43)
[2020-04-25] MEDS: LEVOTHYROXINE SODIUM 100MCG TABLET PO SCH (08:43)
[2020-04-25] MEDS: CITALOPRAM HYDROBROMIDE 10MG TABLET PO SCH (08:43)
[2020-04-25] MEDS: NIFEDIPINE XL 60MG TAB PO SCH (08:44)
[2020-04-25] MEDS: MORPHINE SULFATE 2 MG/ML CPJ (NOT FOR IM USE) IV PRN ×2 (08:45→13:47)
[2020-04-25 11:49] LABS: PLATELET ESTIMATE NORMAL
[2020-04-25] MEDS ORDERED: VANCOMYCIN 500 MG PREMIX 100 ML IV NR (12:30)
[2020-04-25] MEDS: ACETAMINOPHEN 325MG TABLET PO PRN (18:06)
[2020-04-25] MEDS: OLANZAPINE 2.5MG TABLET PO SCH (20:18)
[2020-04-25] MEDS: AZITHROMYCIN 500 MG in DEXT 5% WATER 250 ML IV SCH (20:18)
[2020-04-26] VITALS (48 sets, daily range): BP systolic 84–166; BP diastolic 30–98
[2020-04-26 07:45] LABS: BASOPHILS % 0.4 % (0.0-2.0); EOSINOPHILS % 7.1 % (0.0-5.0); HEMOGLOBIN. 8.8 g/dL (14.0-18.0); LYMPHOCYTES % 7.7 % (20.0-50.0); MEAN CORPUSCULAR HEMOGLOBIN 24.3 pg (28.0-32.0); MEAN CORPUSCULAR VOLUME 80.3 fL (80.0-94.0); MONOCYTES % 10.1 % (2.0-8.0); NEUTROPHILS % 74.7 % (40.0-76.0); PLATELET 336 x1000/uL (130-400); RED BLOOD CELL COUNT 3.61 mill/uL (4.7-6.1); RED CELL DISTRIBUTION WIDTH 19.2 % (11.6-14.6)
[2020-04-26] MEDS: ACETAMINOPHEN 325MG TABLET PO PRN ×3 (07:46→20:51)
[2020-04-26] MEDS: CITALOPRAM HYDROBROMIDE 10MG TABLET PO SCH (07:47)
[2020-04-26] MEDS: LEVOTHYROXINE SODIUM 100MCG TABLET PO SCH (07:47)
[2020-04-26] MEDS: LOSARTAN POTASSIUM 100 MG TABLET PO SCH (07:47)
[2020-04-26] MEDS: NIFEDIPINE XL 60MG TAB PO SCH (09:00)
[2020-04-26] MEDS: MORPHINE SULFATE 2 MG/ML CPJ (NOT FOR IM USE) IV PRN (19:09)
[2020-04-26] MEDS: OLANZAPINE 2.5MG TABLET PO SCH (20:55)
[2020-04-27] VITALS (46 sets, daily range): BP systolic 93–160; BP diastolic 35–104
[2020-04-27] MEDS ORDERED: ZOLP5TAB2 PO (00:45)
[2020-04-27] MEDS: MORPHINE SULFATE 2 MG/ML CPJ (NOT FOR IM USE) IV PRN ×2 (00:45→22:18)
[2020-04-27] MEDS ORDERED: LORA-249 PO (00:45)
[2020-04-27] MEDS: ACETAMINOPHEN 325MG TABLET PO PRN ×4 (04:12→21:14)
[2020-04-27 06:37] LABS: BASOPHILS % 0.4 % (0.0-2.0); EOSINOPHILS % 7.7 % (0.0-5.0); HEMOGLOBIN. 8.1 g/dL (14.0-18.0); LYMPHOCYTES % 10.1 % (20.0-50.0); MEAN CORPUSCULAR VOLUME 80.2 fL (80.0-94.0); MEAN PLATELET VOLUME 7.9 fl (7.4-10.4); MONOCYTES % 8.9 % (2.0-8.0); NEUTROPHILS % 72.9 % (40.0-76.0); PLATELET 346 x1000/uL (130-400); RED BLOOD CELL COUNT 3.24 mill/uL (4.7-6.1); RED CELL DISTRIBUTION WIDTH 18.9 % (11.6-14.6)
[2020-04-27] MEDS: CITALOPRAM HYDROBROMIDE 10MG TABLET PO SCH (09:21)
[2020-04-27] MEDS: LEVOTHYROXINE SODIUM 100MCG TABLET PO SCH (09:21)
[2020-04-27] MEDS: OLANZAPINE 2.5MG TABLET PO SCH (21:14)
[2020-04-28] VITALS (50 sets, daily range): BP systolic 77–292; BP diastolic 19–167
[2020-04-28] MEDS: MORPHINE SULFATE 2 MG/ML CPJ (NOT FOR IM USE) IV PRN ×4 (00:04→20:45)
[2020-04-28 06:01] LABS: BASOPHILS % 0.8 % (0.0-2.0); EOSINOPHILS % 4.3 % (0.0-5.0); HEMATOCRIT. 26.7 % (42.0-52.0); LYMPHOCYTES % 10.7 % (20.0-50.0); MEAN CORPUSCULAR HEMOGLOBIN 24.7 pg (28.0-32.0); MEAN CORPUSCULAR VOLUME 82.5 fL (80.0-94.0); MEAN PLATELET VOLUME 8.4 fl (7.4-10.4); MONOCYTES % 11.1 % (2.0-8.0); NEUTROPHILS % 73.1 % (40.0-76.0); PLATELET 296 x1000/uL (130-400); RED BLOOD CELL COUNT 3.23 mill/uL (4.7-6.1); RED CELL DISTRIBUTION WIDTH 18.6 % (11.6-14.6)
[2020-04-28] MEDS: LEVOTHYROXINE SODIUM 100MCG TABLET PO SCH (07:50)
[2020-04-28] MEDS: CITALOPRAM HYDROBROMIDE 10MG TABLET PO SCH (09:00)
[2020-04-28] MEDS ORDERED: TALC 3 GM VIAL IX SCH (11:15)
[2020-04-28] MEDS ORDERED: TETRACAINE/BENZOCAINE/BUTAMBEN 20 GM SPRAY MM ONE (13:48)
[2020-04-28] MEDS ORDERED: SKIN ADHESIVE 0.7 GM EA TOP ONE (13:49)
[2020-04-28] MEDS ORDERED: BACITRACIN 50,000 UNITS/VIAL ONE (13:49)
[2020-04-28] MEDS ORDERED: NEOSTIGMINE METHYLSULFATE 1MG/ML 10 ML VIAL ONE (16:02)
[2020-04-28] MEDS ORDERED: ROCURONIUM BROMIDE 10MG/ML VIAL 5ML IV ONE ×2 (16:02→17:49)
[2020-04-28] MEDS ORDERED: FENTANYL CITRATE/PF 50MCG/ML 2ML VIAL ONE ×2 (16:02→17:51)
[2020-04-28] MEDS ORDERED: PROPOFOL 200MG/20ML VIAL IV ONE (16:03)
[2020-04-28] MEDS ORDERED: PHENYLEPHRINE HCL 10 MG/ML 1ML (IV VIAL) IV ONE (16:03)
[2020-04-28] MEDS ORDERED: SUCCINYLCHOLINE CHLORIDE 200MG/10ML IV ONE (16:03)
[2020-04-28] MEDS ORDERED: ONDANSETRON HCL 4MG/2ML INJ ONE (16:03)
[2020-04-28] MEDS ORDERED: GLYCOPYRROLATE 0.2 MG/ML 2ML VIAL ONE (16:03)
[2020-04-28] MEDS ORDERED: SODIUM CHLORIDE 0.9% 10ML VIAL ONE (16:03)
[2020-04-28] MEDS ORDERED: CEFAZOLIN SODIUM 1000MG/VIAL ONE (16:03)
[2020-04-28] MEDS ORDERED: METOCLOPRAMIDE HCL 10MG/2ML VIAL ONE (16:03)
[2020-04-28] MEDS ORDERED: MIDAZOLAM HCL 2 MG/2 ML VIAL ONE ×2 (16:03→17:51)
[2020-04-28] MEDS ORDERED: EPHEDRINE SULFATE 50MG/ML VIAL ONE (16:03)
[2020-04-28] MEDS ORDERED: PROPOFOL 10MG/ML 100ML 100 ML IV PRN (18:45)
[2020-04-28] MEDS ORDERED: MORPHINE SULFATE 4 MG/ML CPJ (NOT FOR IM USE) IV NR (19:00)
[2020-04-28 21:00] LABS: BG BASE EXCESS -3.3 mmol/L (-2.0-2.0); BG CARBOXYHEMOGLOBIN 0.3 % (0.5-1.5); BG DEOXYHEMOGLOBIN 0.6 % (0.0-5.0); BG FRACTION INSPIRED OXYGEN 50; BG HCO3 ACT 20.1 mmol/L (22.0-26.0); BG METHEMOGLOBIN 0.2 % (0.0-1.5); BG OXYGEN SATURATION 99.4 % (92.0-98.5); BG OXYHEMOGLOBIN 98.9 % (94.0-97.0); BG PCO2 30.1 mmHg (35.0-45.0); BG PH 7.443 (7.350-7.450); BG SAMPLE SITE ALINE; BG TOTAL HEMOGLOBIN 9.6 g/dL (12.0-18.0); BG VENT MODE VENT - AC
[2020-04-28] MEDS: OLANZAPINE 2.5MG TABLET PO SCH (21:00)
[2020-04-28] MEDS: HYDRALAZINE 20MG/ML VIAL IV PRN (21:16)
[2020-04-28] MEDS ORDERED: DILTIAZEM HCL 5MG/ML 5ML VIAL IV ONE (22:15)
[2020-04-28] MEDS ORDERED: PHENYLEPHRINE 100 MG in DEXT 5% WATER 240 ML IV PRN (22:45)
[2020-04-28] MEDS ORDERED: ALBUMIN HUMAN 25GM/100ML (25%) IV SCH (23:00)
[2020-04-28] MEDS ORDERED: SODIUM CHLORIDE 0.9% 500 ML IV ONE (23:00)
[2020-04-28] MEDS: FENTANYL CITRATE/PF 1,000 MCG in SODIUM CHLORIDE 0.9% 80 ML IV PRN (23:37)
[2020-04-29] VITALS (104 sets, daily range): BP systolic 73–225; BP diastolic 28–208
[2020-04-29] MEDS: FENTANYL CITRATE/PF 1,000 MCG in SODIUM CHLORIDE 0.9% 80 ML IV PRN (05:27)
[2020-04-29 05:56] LABS: HEMATOCRIT. 33.1 % (42.0-52.0); HEMOGLOBIN. 10.5 g/dL (14.0-18.0); MEAN CORPUSCULAR HEMOGLOBIN 26.1 pg (28.0-32.0); MEAN CORPUSCULAR VOLUME 82.5 fL (80.0-94.0); MEAN PLATELET VOLUME 8.2 fl (7.4-10.4); PLATELET 304 x1000/uL (130-400); RED BLOOD CELL COUNT 4.02 mill/uL (4.7-6.1); RED CELL DISTRIBUTION WIDTH 18.1 % (11.6-14.6)
[2020-04-29] MEDS: CITALOPRAM HYDROBROMIDE 10MG TABLET PO SCH (09:00)
[2020-04-29] MEDS: LEVOTHYROXINE SODIUM 100MCG TABLET PO SCH (09:59)
[2020-04-29 10:09] LABS: BG BASE EXCESS -5.4 mmol/L (-2.0-2.0); BG CARBOXYHEMOGLOBIN 0.3 % (0.5-1.5); BG DEOXYHEMOGLOBIN 1.8 % (0.0-5.0); BG FRACTION INSPIRED OXYGEN 40; BG HCO3 ACT 15.7 mmol/L (22.0-26.0); BG METHEMOGLOBIN 0.2 % (0.0-1.5); BG OXYGEN SATURATION 98.2 % (92.0-98.5); BG OXYHEMOGLOBIN 97.7 % (94.0-97.0); BG PCO2 19.5 mmHg (35.0-45.0); BG PH 7.523 (7.350-7.450); BG PO2 133.8 mmHg (75.0-100.0); BG SAMPLE SITE ALINE; BG TOTAL HEMOGLOBIN 10.3 g/dL (12.0-18.0); BG TOTAL RESPIRATORY RATE 38 b/min; BG VENT MODE VENT - AC
[2020-04-29] MEDS: LORAZEPAM 2MG/ML CPJ IV PRN (13:10)
[2020-04-29] MEDS ORDERED: AMIODARONE HCL 900 MG in DEXT 5% WATER 482 ML IV PRN (18:30)
[2020-04-29] MEDS ORDERED: MAGNESIUM 2 G PREMIX 50 ML IV NR (18:30)
[2020-04-29] MEDS: CEFEPIME 1,000 MG in DEXTROSE 5% WATER 50 ML IV SCH (19:03)
[2020-04-29] MEDS: MORPHINE SULFATE 2 MG/ML CPJ (NOT FOR IM USE) IV PRN ×2 (20:07→22:46)
[2020-04-29 20:13] LABS: PLATELET ESTIMATE NORMAL
[2020-04-29] MEDS: OLANZAPINE 2.5MG TABLET PO SCH ×2 (21:00→22:42)
[2020-04-29] MEDS: DIPHENHYDRAMINE 50MG/ML VIAL IV PRN (23:36)
[2020-04-30] VITALS (97 sets, daily range): BP systolic 55–163; BP diastolic 29–89
[2020-04-30 00:02] LABS: HEMOGLOBIN. 10.1 g/dL (14.0-18.0); MEAN CORPUSCULAR HEMOGLOBIN 26.2 pg (28.0-32.0); MEAN CORPUSCULAR VOLUME 83.3 fL (80.0-94.0); MEAN PLATELET VOLUME 8.4 fl (7.4-10.4); PHOSPHORUS 5.1 mg/dL (2.5-4.9); PLATELET 313 x1000/uL (130-400); RED BLOOD CELL COUNT 3.84 mill/uL (4.7-6.1); RED CELL DISTRIBUTION WIDTH 17.7 % (11.6-14.6)
[2020-04-30] MEDS: LORAZEPAM 2MG/ML CPJ IV PRN ×2 (01:38→19:46)
[2020-04-30 02:20] LABS: PLATELET ESTIMATE NORMAL
[2020-04-30 06:01] LABS: EOSINOPHILS % 1.9 % (0.0-5.0); HEMATOCRIT. 31.3 % (42.0-52.0); LYMPHOCYTES % 8.1 % (20.0-50.0); MEAN CORPUSCULAR HEMOGLOBIN 26.6 pg (28.0-32.0); MEAN CORPUSCULAR VOLUME 83.6 fL (80.0-94.0); MEAN PLATELET VOLUME 8.3 fl (7.4-10.4); MONOCYTES % 9.9 % (2.0-8.0); NEUTROPHILS % 79.1 % (40.0-76.0); PLATELET 285 x1000/uL (130-400); RED BLOOD CELL COUNT 3.75 mill/uL (4.7-6.1); RED CELL DISTRIBUTION WIDTH 17.8 % (11.6-14.6)
[2020-04-30] MEDS: LEVOTHYROXINE SODIUM 100MCG TABLET PO SCH (07:50)
[2020-04-30] MEDS: CITALOPRAM HYDROBROMIDE 10MG TABLET PO SCH (08:12)
[2020-04-30] MEDS: MORPHINE SULFATE 2 MG/ML CPJ (NOT FOR IM USE) IV PRN (09:29)
[2020-04-30] MEDS: DIPHENHYDRAMINE 50MG/ML VIAL IV PRN (12:15)
[2020-04-30] MEDS ORDERED: SODIUM CHLORIDE 0.9% 1,000 ML IV SCH (13:15)
[2020-04-30] MEDS: CEFEPIME 1,000 MG in DEXTROSE 5% WATER 50 ML IV SCH (15:04)
[2020-04-30] MEDS: ACETAMINOPHEN 325MG TABLET PO PRN (15:04)
[2020-04-30] MEDS ORDERED: MORPHINE SULFATE 2 MG/ML CPJ (NOT FOR IM USE) IV NR (20:00)
[2020-04-30] MEDS: OLANZAPINE 2.5MG TABLET PO SCH (21:42)
[2020-05-01] VITALS (42 sets, daily range): BP systolic 88–179; BP diastolic 30–84
[2020-05-01] MEDS: IPRATROPIUM/ALBUTEROL 0.5-3(2.5)MG/3ML NEB HHN SCH ×3 (00:15→20:48)
[2020-05-01] MEDS: LORAZEPAM 2MG/ML CPJ IV PRN ×3 (02:14→22:07)
[2020-05-01 06:24] LABS: BASOPHILS % 0.9 % (0.0-2.0); EOSINOPHILS % 8.3 % (0.0-5.0); HEMATOCRIT. 31.4 % (42.0-52.0); HEMOGLOBIN. 9.7 g/dL (14.0-18.0); LYMPHOCYTES % 10.1 % (20.0-50.0); MEAN CORPUSCULAR HEMOGLOBIN 26.1 pg (28.0-32.0); MEAN CORPUSCULAR VOLUME 84.7 fL (80.0-94.0); MEAN PLATELET VOLUME 8.2 fl (7.4-10.4); MONOCYTES % 11.1 % (2.0-8.0); NEUTROPHILS % 69.6 % (40.0-76.0); PLATELET 284 x1000/uL (130-400); RED BLOOD CELL COUNT 3.71 mill/uL (4.7-6.1); RED CELL DISTRIBUTION WIDTH 18.2 % (11.6-14.6)
[2020-05-01] MEDS: LEVOTHYROXINE SODIUM 100MCG TABLET PO SCH (09:20)
[2020-05-01] MEDS: AMIODARONE HCL 200 MG TABLET PO SCH ×2 (09:20→18:30)
[2020-05-01] MEDS: CITALOPRAM HYDROBROMIDE 10MG TABLET PO SCH (09:20)
[2020-05-01] MEDS: ACETAMINOPHEN 325MG TABLET PO PRN (09:22)
[2020-05-01] MEDS: MIDODRINE HCL 5MG TABLET PO SCH ×2 (11:30→17:00)
[2020-05-01] MEDS ORDERED: MIDODRINE HCL 5MG TABLET PO SCH (13:00)
[2020-05-01] MEDS: ACETYLCYSTEINE 100MG/ML 10% VIAL 4ML INH SCH (16:11)
[2020-05-01] MEDS: CEFEPIME 1,000 MG in DEXTROSE 5% WATER 50 ML IV SCH (18:30)
[2020-05-01] MEDS: OLANZAPINE 2.5MG TABLET PO SCH (22:07)
[2020-05-01] MEDS: EPOETIN ALFA-EPBX 10,000 UNIT/ML VIAL SUBCUT SCH (22:07)
[2020-05-01] MEDS: MORPHINE SULFATE 2 MG/ML CPJ (NOT FOR IM USE) IV PRN (23:33)
[2020-05-02] VITALS (12 sets, daily range): BP systolic 117–174; BP diastolic 56–97
[2020-05-02] MEDS: DIPHENHYDRAMINE 50MG/ML VIAL IV PRN ×3 (02:52→22:40)
[2020-05-02] MEDS: LORAZEPAM 2MG/ML CPJ IV PRN ×2 (05:49→09:35)
[2020-05-02] MEDS: LEVOTHYROXINE SODIUM 100MCG TABLET PO SCH (06:56)
[2020-05-02 07:13] LABS: HEMATOCRIT. 31.7 % (42.0-52.0); HEMOGLOBIN. 10.1 g/dL (14.0-18.0); MEAN CORPUSCULAR HEMOGLOBIN 26.8 pg (28.0-32.0); MEAN CORPUSCULAR VOLUME 84.2 fL (80.0-94.0); PLATELET 236 x1000/uL (130-400); RED BLOOD CELL COUNT 3.76 mill/uL (4.7-6.1); RED CELL DISTRIBUTION WIDTH 17.8 % (11.6-14.6)
[2020-05-02] MEDS: MIDODRINE HCL 5MG TABLET PO SCH ×3 (09:29→17:00)
[2020-05-02] MEDS: CITALOPRAM HYDROBROMIDE 10MG TABLET PO SCH (09:29)
[2020-05-02] MEDS: AMIODARONE HCL 200 MG TABLET PO SCH ×2 (09:29→16:04)
[2020-05-02] MEDS: IPRATROPIUM/ALBUTEROL 0.5-3(2.5)MG/3ML NEB HHN SCH ×3 (10:10→20:15)
[2020-05-02] MEDS: ACETYLCYSTEINE 100MG/ML 10% VIAL 4ML INH SCH (10:10)
[2020-05-02] MEDS: RISPERIDONE 0.5MG TABLET PO SCH ×2 (12:57→21:33)
[2020-05-02 13:37] LABS: PLATELET ESTIMATE NORMAL
[2020-05-02] MEDS: CEFEPIME 1,000 MG in DEXTROSE 5% WATER 50 ML IV SCH (16:04)
[2020-05-02] MEDS: LORAZEPAM 1MG TABLET PO PRN (21:33)
[2020-05-02] MEDS: OLANZAPINE 2.5MG TABLET PO SCH (21:33)
[2020-05-03] VITALS (14 sets, daily range): BP systolic 62–182; BP diastolic 36–98
[2020-05-03] MEDS: ACETYLCYSTEINE 100MG/ML 10% VIAL 4ML INH SCH ×2 (00:21→08:56)
[2020-05-03] MEDS: IPRATROPIUM/ALBUTEROL 0.5-3(2.5)MG/3ML NEB HHN SCH ×5 (00:21→16:42)
[2020-05-03] MEDS: MORPHINE SULFATE 2 MG/ML CPJ (NOT FOR IM USE) IV PRN ×2 (00:59→03:19)
[2020-05-03] MEDS: DIPHENHYDRAMINE 50MG/ML VIAL IV PRN ×4 (05:54→23:29)
[2020-05-03] MEDS: LEVOTHYROXINE SODIUM 100MCG TABLET PO SCH (06:31)
[2020-05-03 07:25] LABS: CHLORIDE 103 mEq/L (98-107)
[2020-05-03 07:31] LABS: BASOPHILS % 0.8 % (0.0-2.0); EOSINOPHILS % 6.7 % (0.0-5.0); HEMATOCRIT. 31.3 % (42.0-52.0); HEMOGLOBIN. 9.8 g/dL (14.0-18.0); MEAN CORPUSCULAR HEMOGLOBIN 26.8 pg (28.0-32.0); MEAN CORPUSCULAR VOLUME 85.3 fL (80.0-94.0); MONOCYTES % 10.4 % (2.0-8.0); NEUTROPHILS % 71.1 % (40.0-76.0); PLATELET 229 x1000/uL (130-400); RED BLOOD CELL COUNT 3.67 mill/uL (4.7-6.1); RED CELL DISTRIBUTION WIDTH 18.3 % (11.6-14.6)
[2020-05-03] MEDS: CITALOPRAM HYDROBROMIDE 10MG TABLET PO SCH (08:34)
[2020-05-03] MEDS: AMIODARONE HCL 200 MG TABLET PO SCH ×2 (08:34→17:22)
[2020-05-03] MEDS: MIDODRINE HCL 5MG TABLET PO SCH ×3 (08:35→17:22)
[2020-05-03] MEDS: RISPERIDONE 0.5MG TABLET PO SCH ×2 (08:35→20:10)
[2020-05-03] MEDS: LORAZEPAM 1MG TABLET PO PRN (08:35)
[2020-05-03 10:59] LABS: T4 FREE 1.68 ng/dL (0.76-1.46)
[2020-05-03] MEDS ORDERED: AMIODARONE HCL 200 MG TABLET PO SCH (11:00)
[2020-05-03] MEDS ORDERED: DIGOXIN 500MCG/2ML AMP IV SCH (11:00)
[2020-05-03] MEDS ORDERED: SODIUM POLYSTYRENE SULFONATE 15 G/60 ML BOT PO SCH (12:00)
[2020-05-03] MEDS: LORAZEPAM 2MG/ML CPJ IV PRN ×2 (15:10→23:26)
[2020-05-03] MEDS: CEFEPIME 1,000 MG in DEXTROSE 5% WATER 50 ML IV SCH (17:22)
[2020-05-03] MEDS: HALOPERIDOL LACTATE 5MG/ML VIAL IM PRN (20:09)
[2020-05-03] MEDS: OLANZAPINE 2.5MG TABLET PO SCH (20:10)
[2020-05-04] VITALS (10 sets, daily range): BP systolic 142–189; BP diastolic 61–98
[2020-05-04] MEDS: HALOPERIDOL LACTATE 5MG/ML VIAL IM PRN ×4 (04:27→23:56)
[2020-05-04] MEDS: LORAZEPAM 2MG/ML CPJ IV PRN ×3 (05:42→18:13)
[2020-05-04] MEDS: LEVOTHYROXINE SODIUM 100MCG TABLET PO SCH (06:50)
[2020-05-04] MEDS: RISPERIDONE 0.5MG TABLET PO SCH ×2 (09:00→21:08)
[2020-05-04] MEDS: AMIODARONE HCL 200 MG TABLET PO SCH ×2 (09:00→17:00)
[2020-05-04] MEDS: CITALOPRAM HYDROBROMIDE 10MG TABLET PO SCH (09:00)
[2020-05-04] MEDS: CEFEPIME 1,000 MG in DEXTROSE 5% WATER 50 ML IV SCH (17:10)
[2020-05-04] MEDS: EPOETIN ALFA-EPBX 10,000 UNIT/ML VIAL SUBCUT SCH (21:00)
[2020-05-04] MEDS: OLANZAPINE 2.5MG TABLET PO SCH (21:08)
[2020-05-05] VITALS (8 sets, daily range): BP systolic 148–189; BP diastolic 64–93
[2020-05-05] MEDS: LORAZEPAM 2MG/ML CPJ IV PRN ×3 (02:07→20:06)
[2020-05-05] MEDS: HYDRALAZINE 20MG/ML VIAL IV PRN (04:15)
[2020-05-05] MEDS: LEVOTHYROXINE SODIUM 100MCG TABLET PO SCH (06:17)
[2020-05-05 07:07] LABS: BASOPHILS % 1.1 % (0.0-2.0); EOSINOPHILS % 3.2 % (0.0-5.0); HEMATOCRIT. 30.4 % (42.0-52.0); HEMOGLOBIN. 9.5 g/dL (14.0-18.0); LYMPHOCYTES % 7.6 % (20.0-50.0); MEAN CORPUSCULAR HEMOGLOBIN 26.6 pg (28.0-32.0); MEAN CORPUSCULAR VOLUME 84.9 fL (80.0-94.0); MEAN PLATELET VOLUME 8.4 fl (7.4-10.4); MONOCYTES % 8.2 % (2.0-8.0); NEUTROPHILS % 79.9 % (40.0-76.0); PLATELET 262 x1000/uL (130-400); RED BLOOD CELL COUNT 3.58 mill/uL (4.7-6.1); RED CELL DISTRIBUTION WIDTH 18.3 % (11.6-14.6)
[2020-05-05] MEDS: HALOPERIDOL LACTATE 5MG/ML VIAL IM PRN (08:46)
[2020-05-05] MEDS: AMIODARONE HCL 200 MG TABLET PO SCH ×3 (08:53→17:35)
[2020-05-05] MEDS: CITALOPRAM HYDROBROMIDE 10MG TABLET PO SCH (09:12)
[2020-05-05] MEDS: RISPERIDONE 0.5MG TABLET PO SCH ×2 (09:12→20:05)
[2020-05-05] MEDS: CLONIDINE 0.1MG TABLET PO PRN ×2 (09:48→20:06)
[2020-05-05] MEDS: OLANZAPINE 2.5MG TABLET PO SCH (20:05)
[2020-05-06] VITALS: BP 151/69
[2020-05-06 04:25] VITALS: BP 163/65
[2020-05-06] MEDS: LEVOTHYROXINE SODIUM 100MCG TABLET PO SCH (05:58)
[2020-05-06] MEDS: HYDRALAZINE 20MG/ML VIAL IV PRN (05:59)
[2020-05-06] MEDS: LORAZEPAM 2MG/ML CPJ IV PRN ×2 (06:10→15:55)
[2020-05-06 07:25] LABS: BASOPHILS % 1.2 % (0.0-2.0); EOSINOPHILS % 5.3 % (0.0-5.0); HEMATOCRIT. 29.6 % (42.0-52.0); LYMPHOCYTES % 13.9 % (20.0-50.0); MEAN CORPUSCULAR HEMOGLOBIN 26.1 pg (28.0-32.0); MEAN PLATELET VOLUME 8.6 fl (7.4-10.4); MONOCYTES % 11.7 % (2.0-8.0); NEUTROPHILS % 67.9 % (40.0-76.0); PLATELET 254 x1000/uL (130-400); RED BLOOD CELL COUNT 3.44 mill/uL (4.7-6.1); RED CELL DISTRIBUTION WIDTH 18.4 % (11.6-14.6)
[2020-05-06 08:00] VITALS: BP 165/90
[2020-05-06] MEDS: CITALOPRAM HYDROBROMIDE 10MG TABLET PO SCH (10:09)
[2020-05-06] MEDS: AMIODARONE HCL 200 MG TABLET PO SCH ×2 (10:10→17:00)
[2020-05-06] MEDS: RISPERIDONE 0.5MG TABLET PO SCH (10:10)
[2020-05-06 12:00] VITALS: BP 162/74
[2020-05-06] MEDS ORDERED: MAGNESIUM HYDROXIDE 400MG/5ML 30ML UDC PO NR (12:30)
[2020-05-06] MEDS: CLONIDINE 0.1MG TABLET PO PRN (12:55)
[2020-05-06 13:32] VITALS: BP 156/65
[2020-05-06 16:00] VITALS: BP 152/65
== END 2020-05-06 17:48 | DRG 853 ==
LOC: ER 21:36 → 7WST 04-20 00:20 → EDBEDREQSVC 04-20 10:07 → ENRESERV 04-20 19:27 → 7WST 04-21 08:22 → 5WST 04-22 11:00 → CVICU 04-23 16:40 → 3WST 05-01 11:57
PROVIDERS: ADMIT Internal Medicine; ATTEND Internal Medicine
PROC: 0BJ08ZZ Inspection of Tracheobronchial Tree, Via Natural or Artificial Opening Endoscopic (ICD-10-PCS; principal; 2020-04-23)
PROC: 0BNG4ZZ Release Left Upper Lung Lobe, Percutaneous Endoscopic Approach (ICD-10-PCS; 2020-04-23)
PROC: 0BNJ4ZZ Release Left Lower Lung Lobe, Percutaneous Endoscopic Approach (ICD-10-PCS; 2020-04-23)
PROC: 0B5N4ZZ Destruction of Right Pleura, Percutaneous Endoscopic Approach (ICD-10-PCS; 2020-04-23)
PROC: 3E0L3GC Introduction of Other Therapeutic Substance into Pleural Cavity, Percutaneous Approach (ICD-10-PCS; 2020-04-23)
PROC: 0W9930Z Drainage of Right Pleural Cavity with Drainage Device, Percutaneous Approach (ICD-10-PCS; 2020-04-23)
PROC: 5A1935Z Respiratory Ventilation, Less than 24 Consecutive Hours (ICD-10-PCS; 2020-04-23)
PROC: 30233N1 Transfusion of Nonautologous Red Blood Cells into Peripheral Vein, Percutaneous Approach (ICD-10-PCS; 2020-04-23)
PROC: 0BNP4ZZ Release Left Pleura, Percutaneous Endoscopic Approach (ICD-10-PCS; 2020-04-28)
PROC: 3E0L4GC Introduction of Other Therapeutic Substance into Pleural Cavity, Percutaneous Endoscopic Approach (ICD-10-PCS; 2020-04-28)
PROC: 0BNN4ZZ Release Right Pleura, Percutaneous Endoscopic Approach (ICD-10-PCS; 2020-04-28)
PROC: 0BH18EZ Insertion of Endotracheal Airway into Trachea, Via Natural or Artificial Opening Endoscopic (ICD-10-PCS; 2020-04-28)
PROC: B54BZZA Ultrasonography of Right Lower Extremity Veins, Guidance (ICD-10-PCS; 2020-04-28)
PROC: 3E0T3BZ Introduction of Anesthetic Agent into Peripheral Nerves and Plexi, Percutaneous Approach (ICD-10-PCS; 2020-04-29)
PROC: 02HV33Z Insertion of Infusion Device into Superior Vena Cava, Percutaneous Approach (ICD-10-PCS; 2020-04-29)
PROC: B548ZZA Ultrasonography of Superior Vena Cava, Guidance (ICD-10-PCS; 2020-04-29)
DX: A41.9 Sepsis, unspecified organism (principal); J96.21 Acute and chronic respiratory failure with hypoxia; N18.6 End stage renal disease; E43 Unspecified severe protein-calorie malnutrition; J18.9 Pneumonia, unspecified organism; I13.2 Hypertensive heart and chronic kidney disease with heart failure and with stage 5 chronic kidney disease, or end stage renal disease; J93.9 Pneumothorax, unspecified; J44.0 Chronic obstructive pulmonary disease with (acute) lower respiratory infection; J90 Pleural effusion, not elsewhere classified; J94.2 Hemothorax; I47.2 Ventricular tachycardia; I48.92 Unspecified atrial flutter; Z68.1 Body mass index [BMI] 19.9 or less, adult; R45.851 Suicidal ideations; J94.8 Other specified pleural conditions; Z20.828 Contact with and (suspected) exposure to other viral communicable diseases; M10.9 Gout, unspecified; I50.9 Heart failure, unspecified; F32.9 Major depressive disorder, single episode, unspecified; F20.9 Schizophrenia, unspecified; E11.22 Type 2 diabetes mellitus with diabetic chronic kidney disease; E03.9 Hypothyroidism, unspecified; Z66 Do not resuscitate; D64.9 Anemia, unspecified; E87.5 Hyperkalemia; E83.41 Hypermagnesemia; S30.0XXA Contusion of lower back and pelvis, initial encounter; R77.8 Other specified abnormalities of plasma proteins; F99 Mental disorder, not otherwise specified; E83.39 Other disorders of phosphorus metabolism; X58.XXXA Exposure to other specified factors, initial encounter; Z99.2 Dependence on renal dialysis; Z87.891 Personal history of nicotine dependence; Z79.899 Other long term (current) drug therapy; Z79.891 Long term (current) use of opiate analgesic; Y93.89 Activity, other specified; Y92.89 Other specified places as the place of occurrence of the external cause; Y99.8 Other external cause status
CPT/HCPCS: 32555; 36415; 36600; 71045; 71250; 76937; 80048; 80053; 80076; 80202; 82040; 82375; 82805; 82962; 83605; 83615; 83735; 83880; 84100; 84145; 84439; 84443; 84478; 84484; 85025; 86850; 86900; 86920; 87070; 87075; 87426; 87635; 88108; 88304; 88305; 88312; 92610; 93005; 96365; 96366; 96368; 96375; 99291; C1725; C1893; J0330; J0360; J0456; J0690; J0692; J0885; J1100; J1160; J1200; J1630; J1650; J1940; J2060; J2250; J2270; J2370; J2405; J2543; J2704; J2710; J2765; J2930; J3010; J3370; J3475; J3490; J7040; J7050; J7060; J7608; P9016; P9047

== ENCOUNTER 2020-05-12 13:18 | Inpatient (IN) | payer MEDICARE, MEDICAID ==
[~2020-05-12] VITALS: Ht 162.6 cm; Wt 46.7 kg
[~2020-05-12 13:18] MED LIST changes: +ZOLP5TAB2 PO
[2020-05-12 15:26] LABS: BASOPHILS % 0.6 % (0.0-2.0); EOSINOPHILS % 3.6 % (0.0-5.0); HEMOGLOBIN. 9.4 g/dL (14.0-18.0); MEAN CORPUSCULAR VOLUME 83.7 fL (80.0-94.0); MEAN PLATELET VOLUME 8.2 fl (7.4-10.4); MONOCYTES % 10.5 % (2.0-8.0); NEUTROPHILS % 75.3 % (40.0-76.0); PLATELET 303 x1000/uL (130-400); RED BLOOD CELL COUNT 3.47 mill/uL (4.7-6.1); RED CELL DISTRIBUTION WIDTH 19.8 % (11.6-14.6)
[2020-05-12 15:36] LABS: CHLORIDE 98 mEq/L (98-107)
[2020-05-12] MEDS ORDERED: CLONIDINE 0.1MG TABLET PO PRN (19:00)
[2020-05-12] MEDS ORDERED: ONDANSETRON HCL 4MG/2ML INJ IV PRN (21:15)
[2020-05-12] MEDS ORDERED: HYDRALAZINE HCL 25MG TABLET PO SCH (22:00)
[2020-05-12] MEDS: METOPROLOL TARTRATE 25MG TABLET PO SCH (23:41)
[2020-05-12] MEDS: AMLODIPINE 10MG TABLET PO SCH (23:42)
[2020-05-12] MEDS: HYDRALAZINE HCL 50MG TABLET PO SCH (23:42)
[2020-05-13 03:13] VITALS: BP 139/65
[2020-05-13 04:00] VITALS: BP 137/67
[2020-05-13] MEDS: HYDRALAZINE HCL 50MG TABLET PO SCH ×3 (06:00→21:22)
[2020-05-13 08:00] VITALS: BP 160/83
[2020-05-13] MEDS: AMLODIPINE 10MG TABLET PO SCH (09:00)
[2020-05-13] MEDS: HEPARIN 5000 UNITS/ML VIAL SUBCUT SCH ×2 (09:00→21:22)
[2020-05-13] MEDS: METOPROLOL TARTRATE 25MG TABLET PO SCH ×2 (09:00→21:22)
[2020-05-13] MEDS: ACETAMINOPHEN 325MG TABLET PO PRN (09:50)
[2020-05-13 12:00] VITALS: BP 153/74
[2020-05-13 13:26] LABS: BASOPHILS % 1.2 % (0.0-2.0); EOSINOPHILS % 3.3 % (0.0-5.0); HEMATOCRIT. 26.3 % (42.0-52.0); HEMOGLOBIN. 8.2 g/dL (14.0-18.0); LYMPHOCYTES % 13.1 % (20.0-50.0); MEAN CORPUSCULAR HEMOGLOBIN 26.3 pg (28.0-32.0); MEAN CORPUSCULAR VOLUME 84.3 fL (80.0-94.0); MEAN PLATELET VOLUME 8.4 fl (7.4-10.4); MONOCYTES % 7.3 % (2.0-8.0); NEUTROPHILS % 75.1 % (40.0-76.0); PLATELET 313 x1000/uL (130-400); RED BLOOD CELL COUNT 3.12 mill/uL (4.7-6.1); RED CELL DISTRIBUTION WIDTH 19.2 % (11.6-14.6)
[2020-05-13 14:10] LABS: CHLORIDE 100 mEq/L (98-107)
[2020-05-13 16:00] VITALS: BP 176/73
[2020-05-13] MEDS ORDERED: IPRATROPIUM/ALBUTEROL 0.5-3(2.5)MG/3ML NEB HHN PRN (18:30)
[2020-05-13 20:47] VITALS: BP 159/65
[2020-05-13] MEDS: TRAZODONE HCL 50MG TABLET PO PRN (21:22)
[2020-05-13] MEDS: EPOETIN ALFA-EPBX 10,000 UNIT/ML VIAL SUBCUT SCH (21:24)
[2020-05-14 00:44] VITALS: BP 160/75
[2020-05-14 04:00] VITALS: BP 167/78
[2020-05-14] MEDS: HYDRALAZINE HCL 50MG TABLET PO SCH ×3 (06:33→21:44)
[2020-05-14 07:05] LABS: BASOPHILS % 1.2 % (0.0-2.0); HEMATOCRIT. 28.4 % (42.0-52.0); HEMOGLOBIN. 9.1 g/dL (14.0-18.0); LYMPHOCYTES % 16.5 % (20.0-50.0); MEAN CORPUSCULAR VOLUME 84.2 fL (80.0-94.0); MEAN PLATELET VOLUME 8.3 fl (7.4-10.4); MONOCYTES % 11.5 % (2.0-8.0); NEUTROPHILS % 67.8 % (40.0-76.0); PLATELET 344 x1000/uL (130-400); RED BLOOD CELL COUNT 3.37 mill/uL (4.7-6.1); RED CELL DISTRIBUTION WIDTH 19.3 % (11.6-14.6)
[2020-05-14 07:11] LABS: CHLORIDE 103 mEq/L (98-107)
[2020-05-14 08:00] VITALS: BP 165/74
[2020-05-14] MEDS: AMLODIPINE 10MG TABLET PO SCH (09:37)
[2020-05-14] MEDS: HEPARIN 5000 UNITS/ML VIAL SUBCUT SCH ×2 (09:37→21:44)
[2020-05-14] MEDS: METOPROLOL TARTRATE 25MG TABLET PO SCH ×2 (09:38→21:45)
[2020-05-14 12:00] VITALS: BP 137/69
[2020-05-14] MEDS: CLONIDINE 0.2MG TABLET PO SCH ×2 (14:48→21:45)
[2020-05-14] MEDS: ACETAMINOPHEN 325MG TABLET PO PRN ×2 (14:48→17:19)
[2020-05-14 16:00] VITALS: BP 124/64
[2020-05-14 20:00] VITALS: BP 136/66
[2020-05-14] MEDS: TRAZODONE HCL 50MG TABLET PO PRN (21:44)
[2020-05-15] VITALS: BP 120/64
[2020-05-15 04:00] VITALS: BP 133/67
[2020-05-15] MEDS: CLONIDINE 0.2MG TABLET PO SCH ×3 (06:00→22:00)
[2020-05-15] MEDS: HYDRALAZINE HCL 50MG TABLET PO SCH ×3 (06:00→22:00)
[2020-05-15 07:58] LABS: EOSINOPHILS % 4.7 % (0.0-5.0); HEMOGLOBIN. 8.5 g/dL (14.0-18.0); MEAN CORPUSCULAR HEMOGLOBIN 26.8 pg (28.0-32.0); MEAN CORPUSCULAR VOLUME 84.8 fL (80.0-94.0); MEAN PLATELET VOLUME 8.5 fl (7.4-10.4); MONOCYTES % 11.6 % (2.0-8.0); NEUTROPHILS % 60.7 % (40.0-76.0); PLATELET 327 x1000/uL (130-400); RED BLOOD CELL COUNT 3.19 mill/uL (4.7-6.1); RED CELL DISTRIBUTION WIDTH 19.6 % (11.6-14.6)
[2020-05-15 08:00] VITALS: BP 124/58
[2020-05-15 08:51] LABS: CHLORIDE 102 mEq/L (98-107)
[2020-05-15] MEDS: AMLODIPINE 10MG TABLET PO SCH (09:31)
[2020-05-15] MEDS: METOPROLOL TARTRATE 25MG TABLET PO SCH ×2 (09:47→21:00)
[2020-05-15] MEDS: HEPARIN 5000 UNITS/ML VIAL SUBCUT SCH ×2 (09:48→21:27)
[2020-05-15] MEDS: CITALOPRAM HYDROBROMIDE 10MG TABLET PO SCH (14:33)
[2020-05-15] MEDS: LORAZEPAM 0.5MG TABLET PO PRN ×2 (14:33→23:46)
[2020-05-15 16:30] VITALS: BP 114/60
[2020-05-15 20:00] VITALS: BP 102/48
[2020-05-15] MEDS: OLANZAPINE 2.5MG TABLET PO SCH (21:26)
[2020-05-15] MEDS: EPOETIN ALFA-EPBX 10,000 UNIT/ML VIAL SUBCUT SCH (21:27)
[2020-05-15] MEDS: TRAZODONE HCL 50MG TABLET PO PRN (21:27)
[2020-05-16] VITALS: BP 124/55
[2020-05-16 04:00] VITALS: BP 122/68
[2020-05-16] MEDS: HYDRALAZINE HCL 50MG TABLET PO SCH ×3 (06:18→22:00)
[2020-05-16] MEDS: CLONIDINE 0.2MG TABLET PO SCH ×3 (06:18→22:00)
[2020-05-16 06:41] LABS: BASOPHILS % 1.1 % (0.0-2.0); EOSINOPHILS % 4.3 % (0.0-5.0); HEMATOCRIT. 27.8 % (42.0-52.0); HEMOGLOBIN. 8.8 g/dL (14.0-18.0); LYMPHOCYTES % 19.3 % (20.0-50.0); MEAN CORPUSCULAR HEMOGLOBIN 26.8 pg (28.0-32.0); MEAN CORPUSCULAR VOLUME 84.3 fL (80.0-94.0); MEAN PLATELET VOLUME 8.7 fl (7.4-10.4); MONOCYTES % 9.8 % (2.0-8.0); NEUTROPHILS % 65.5 % (40.0-76.0); PLATELET 336 x1000/uL (130-400); RED CELL DISTRIBUTION WIDTH 19.4 % (11.6-14.6)
[2020-05-16 06:47] LABS: CHLORIDE 100 mEq/L (98-107)
[2020-05-16 08:00] VITALS: BP 105/46
[2020-05-16] MEDS: AMLODIPINE 10MG TABLET PO SCH (08:23)
[2020-05-16] MEDS: METOPROLOL TARTRATE 25MG TABLET PO SCH ×2 (08:26→21:17)
[2020-05-16] MEDS: CITALOPRAM HYDROBROMIDE 10MG TABLET PO SCH (08:40)
[2020-05-16] MEDS: HEPARIN 5000 UNITS/ML VIAL SUBCUT SCH ×2 (08:41→21:16)
[2020-05-16] MEDS: LORAZEPAM 0.5MG TABLET PO PRN ×2 (10:09→17:48)
[2020-05-16 12:00] VITALS: BP 114/44
[2020-05-16 16:00] VITALS: BP 105/45
[2020-05-16] MEDS ORDERED: SODIUM BICARBONATE 8.4% 1 MEQ/ML 50ML SYR IV SCH (17:00)
[2020-05-16] MEDS ORDERED: CALCIUM GLUCONATE 1,000 MG in DEXT 5% WATER 90 ML IV SCH (18:00)
[2020-05-16] MEDS ORDERED: SODIUM POLYSTYRENE SULFONATE 15 G/60 ML BOT PO SCH (18:00)
[2020-05-16] MEDS ORDERED: DEXTROSE 50% WATER 50ML SYRINGE IV SCH (18:00)
[2020-05-16] MEDS ORDERED: INSULIN REGULAR (HUMULIN R) UD 100 UNITS/ML SYR IV SCH (18:00)
[2020-05-16] MEDS ORDERED: CALCIUM GLUCONATE 1GM PREMIX 50 ML IV SCH (18:15)
[2020-05-16 20:00] VITALS: BP 117/49
[2020-05-16] MEDS: OLANZAPINE 2.5MG TABLET PO SCH (21:15)
[2020-05-16] MEDS: TRAZODONE HCL 50MG TABLET PO PRN (21:18)
[2020-05-17] VITALS: BP 130/59
[2020-05-17] MEDS: LORAZEPAM 0.5MG TABLET PO PRN (01:03)
[2020-05-17 04:00] VITALS: BP 139/57
[2020-05-17 06:16] LABS: BASOPHILS % 1.1 % (0.0-2.0); EOSINOPHILS % 4.4 % (0.0-5.0); HEMATOCRIT. 28.5 % (42.0-52.0); LYMPHOCYTES % 23.7 % (20.0-50.0); MEAN CORPUSCULAR VOLUME 85.5 fL (80.0-94.0); MEAN PLATELET VOLUME 8.7 fl (7.4-10.4); MONOCYTES % 11.7 % (2.0-8.0); NEUTROPHILS % 59.1 % (40.0-76.0); PLATELET 295 x1000/uL (130-400); RED BLOOD CELL COUNT 3.33 mill/uL (4.7-6.1); RED CELL DISTRIBUTION WIDTH 19.8 % (11.6-14.6)
[2020-05-17] MEDS: HYDRALAZINE HCL 50MG TABLET PO SCH (06:30)
[2020-05-17] MEDS: CLONIDINE 0.2MG TABLET PO SCH (06:30)
[2020-05-17 06:33] LABS: CHLORIDE 101 mEq/L (98-107)
[2020-05-17 08:00] VITALS: BP 121/51
[2020-05-17] MEDS: CITALOPRAM HYDROBROMIDE 10MG TABLET PO SCH (08:43)
[2020-05-17] MEDS: HEPARIN 5000 UNITS/ML VIAL SUBCUT SCH (08:43)
[2020-05-17] MEDS: METOPROLOL TARTRATE 25MG TABLET PO SCH (08:44)
[2020-05-17] MEDS: AMLODIPINE 10MG TABLET PO SCH (08:47)
[2020-05-17 10:49] VITALS: BP 121/51
[2020-05-17 12:23] VITALS: BP 108/55
== END 2020-05-17 12:15 | DRG 291 ==
LOC: ER 13:18 → MICUSO 16:42 → ENRESERV 22:01 → 6WST 22:46
PROVIDERS: ADMIT Family Medicine Adult Medicine; ATTEND Family Medicine Adult Medicine
PROC: 5A1D70Z Performance of Urinary Filtration, Intermittent, Less than 6 Hours Per Day (ICD-10-PCS; principal; 2020-05-13)
PROC: 5A1D70Z Performance of Urinary Filtration, Intermittent, Less than 6 Hours Per Day (ICD-10-PCS; 2020-05-15)
DX: I13.2 Hypertensive heart and chronic kidney disease with heart failure and with stage 5 chronic kidney disease, or end stage renal disease (principal); I50.33 Acute on chronic diastolic (congestive) heart failure; J96.01 Acute respiratory failure with hypoxia; N18.6 End stage renal disease; I31.3 Pericardial effusion (noninflammatory); I47.2 Ventricular tachycardia; F17.210 Nicotine dependence, cigarettes, uncomplicated; D63.1 Anemia in chronic kidney disease; E11.22 Type 2 diabetes mellitus with diabetic chronic kidney disease; I16.0 Hypertensive urgency; E87.5 Hyperkalemia; F20.9 Schizophrenia, unspecified; J44.9 Chronic obstructive pulmonary disease, unspecified; Z20.828 Contact with and (suspected) exposure to other viral communicable diseases; F10.10 Alcohol abuse, uncomplicated; F14.10 Cocaine abuse, uncomplicated; Z79.899 Other long term (current) drug therapy; Z84.1 Family history of disorders of kidney and ureter; Z79.51 Long term (current) use of inhaled steroids; Z99.2 Dependence on renal dialysis; Z79.1 Long term (current) use of non-steroidal anti-inflammatories (NSAID); Z71.6 Tobacco abuse counseling
CPT/HCPCS: 36415; 71045; 80053; 83735; 83880; 84132; 84484; 85025; 86850; 86900; 87426; 93005; 93306; 97162; 99285; C1893; J0610; J0885; J1644; J1815; J7060

== ENCOUNTER 2020-06-11 20:54 | Emergency (ER) | payer MEDICARE, MEDICAID ==
[~2020-06-11] VITALS: Ht 182.9 cm; Wt 65.0 kg
[~2020-06-11 20:54] MED LIST changes: -HYDR-3281 PO; +HYDR-4346 PO
[2020-06-11] MEDS ORDERED: BACITRACIN ZINC OINT UDPKT TOP ONE (22:00)
[2020-06-11 23:46] VITALS: BP 188/94
== END 2020-06-11 23:47 | disposition home or self-care (01) ==
LOC: ER 20:54
DX: R04.0 Epistaxis (principal); J44.9 Chronic obstructive pulmonary disease, unspecified; N18.6 End stage renal disease; Z99.2 Dependence on renal dialysis
CPT/HCPCS: 99283

== ENCOUNTER 2020-09-01 15:32 | Emergency (ER) | payer MEDICARE, MEDICAID ==
[~2020-09-01] VITALS: Ht 172.7 cm; Wt 61.0 kg
[2020-09-01] MEDS ORDERED: CLONIDINE 0.2MG TABLET PO ONE (16:15)
[2020-09-01] MEDS ORDERED: MORPHINE SULFATE 2 MG/ML CPJ (NOT FOR IM USE) IV ONE (16:45)
[2020-09-01] MEDS ORDERED: LORAZEPAM 2MG/ML CPJ IV ONE (16:45)
[2020-09-01 18:08] LABS: BASOPHILS % 0.8 % (0.0-2.0); EOSINOPHILS % 1.3 % (0.0-5.0); HEMOGLOBIN. 11.9 g/dL (14.0-18.0); LYMPHOCYTES % 11.1 % (20.0-50.0); MEAN CORPUSCULAR HEMOGLOBIN 31.4 pg (28.0-32.0); MEAN CORPUSCULAR VOLUME 94.9 fL (80.0-94.0); MEAN PLATELET VOLUME 9.3 fl (7.4-10.4); MONOCYTES % 6.4 % (2.0-8.0); NEUTROPHILS % 80.4 % (40.0-76.0); PLATELET 139 x1000/uL (130-400); RED BLOOD CELL COUNT 3.79 mill/uL (4.7-6.1); RED CELL DISTRIBUTION WIDTH 16.9 % (11.6-14.6)
[2020-09-01 18:14] LABS: CHLORIDE 103 mEq/L (98-107)
[2020-09-01 18:18] LABS: PARTIAL THROMBOPLASTIN TIME 29.1 sec (23.4-31.0); PROTHROMBIN TIME 11.2 sec (9.6-11.0)
[2020-09-01] MEDS ORDERED: HYDRALAZINE 20MG/ML VIAL IV ONE (19:00)
[2020-09-02 01:22] VITALS: BP 176/68
== END 2020-09-02 01:38 | disposition short-term general hospital (02) ==
LOC: ER 15:32 → CANBEDREQ 09-02 06:21
DX: T82.838A Hemorrhage due to vascular prosthetic devices, implants and grafts, initial encounter (principal); E11.22 Type 2 diabetes mellitus with diabetic chronic kidney disease; I12.0 Hypertensive chronic kidney disease with stage 5 chronic kidney disease or end stage renal disease; N18.6 End stage renal disease; F20.9 Schizophrenia, unspecified; E03.9 Hypothyroidism, unspecified; J44.9 Chronic obstructive pulmonary disease, unspecified; Z99.2 Dependence on renal dialysis; Z87.891 Personal history of nicotine dependence; Y84.1 Kidney dialysis as the cause of abnormal reaction of the patient, or of later complication, without mention of misadventure at the time of the procedure; Y92.018 Other place in single-family (private) house as the place of occurrence of the external cause
CPT/HCPCS: 36415; 71045; 80053; 85025; 85610; 85730; 86850; 86900; 86901; 93005; 96374; 96375; 99285; J0360; J2060; J2270